=== PATIENT | female | born 2000 | race Caucasian/White ===

== ENCOUNTER → 2021-10-29 14:33 | Outpatient (BNVA) | payer BC, MEDICAID, SELFPAY | PROVIDERS: Family Provider Nurse Practitioner Family; PCP Nurse Practitioner Family; Visit Provider Nurse Practitioner Family | DX: Z20.822 Contact with and (suspected) exposure to COVID-19 (principal) | CPT/HCPCS: 87635 ==

== ENCOUNTER 2021-12-14 08:14 | Emergency (ER) | payer BC, MEDICAID, SELFPAY ==
[2021-12-14 08:22] VITALS: BP 91/59; PULSE 94; RESP 16; TEMP 36.5; O2SAT 100; BMI 28.2
--- NOTE | 2021-12-14 08:31 | W.ED.NECK ---
HPI - Neck Pain/Injury General: Chief Complaint: Neck Pain/Injury Stated Complaint: Neck pain on R side into uperback and shoulder Time Seen by Provider: 12/14/21 08:27 History of Present Illness: 21-year-old female presents emergency room complaining of right-sided neck pain upper back and shoulder pain. Patient states she went to bed she was fine last night she got up this morning she is getting ready to go to bed twisted her neck in such way she felt the sudden discomfort shooting across the trapezius muscle. Does not go down into her fingers. She not previously had any injury to her neck no recent trauma falls. No history of previous whiplash no history of previous neck issues no previous advanced imaging. MD complaint: neck pain Onset (ago): minute(s) Place: home Radiation: right lateral and right shoulder Severity: moderate Quality: aching Duration: intermittent Relieving factors: none Exacerbating factors: none Context: turning/bending Associated symptoms: Denies dysphagia, difficulty walking, dizziness, fevers/chills, headache(s), nausea, swollen glands, tingling or weakness Treatments prior to arrival: none Review of Systems Const: Denies: fever(s), chills, body aches, change in appetite, fatigue or malaise ENMT: Denies: throat pain, ear or mastoid pain, nasal discharge or nasal congestion Card: Denies: chest pain, edema, dyspnea on exertion or orthopnea Resp: Denies: dyspnea, productive cough or non-productive cough GI: Denies: nausea or dysphagia : Denies: flank pain, difficulty voiding, dysuria, urinary frequency or urinary urgency Skin/Breast: Denies: rash or pruritus Neuro: Denies: headache(s), difficulty walking or dizziness PFS ED PFSH: Medical History No significant past medical history Surgical History No pertinent past surgical history Female Reproductive History: Date of last menstrual period: 11/23/21 Physical Exam Const: COMMON NORMALS: no acute distress GENERAL APPEARANCE: cooperative and comfortable ORIENTATION/CONSCIOUSNESS: Yes awake, Yes oriented to person, Yes oriented to place and Yes oriented to time HENMT: COMMON NORMALS: normocephalic, atraumatic and hearing grossly normal bilaterally HEAD & SCALP: normocephalic and atraumatic Neck/C-Spine: COMMON NORMALS: no JVD Resp: COMMON NORMALS: normal respiratory effort, No retractions, No use of accessory muscles and clear to auscultation bilaterally AUSCULTATION: clear to auscultation bilaterally Cardio: COMMON NORMALS: no JVD, regular rate, regular rhythm and No murmurs present (Cardio) RATE: regular rate RHYTHM: regular rhythm GI: COMMON NORMALS: Soft to palpation and No hepatosplenomegaly present AUSCULTATION: Yes normoactive bowel sounds PALPATION: Yes Soft to palpation, No Tenderness to palpation present (GI), No Guarding due to palpation present (GI) and Yes No hepatosplenomegaly present Extremity: COMMON NORMALS: normal to inspection, capillary refill normal, no clubbing, cyanosis or edema, no calf tenderness and no pedal edema Neuro: SENSORIUM/ORIENTATION: Yes oriented to person, Yes oriented to place and Yes oriented to time DEEP TENDON REFLEXES: Right triceps reflex intensity grade: 2+, Rt Biceps (C5, C6): 2+ and Right brachioradialis reflex intensity grade: 2+ Skin: COMMON NORMALS: no rashes or lesions noted GENERAL SKIN EXAM: no rashes or lesions noted Course Vital Signs: Vital signs: Vital Signs Temperature 98.0 F 12/14/21 09:47 Pulse Rate 91 12/14/21 09:47 Respiratory Rate 14 12/14/21 09:47 Blood Pressure 118/86 12/14/21 09:47 Pulse Oximetry 98 12/14/21 09:47 MDM - Neck Pain/Injury Medical Decision Making No trauma. Patient seemed to induce this after just moving her neck shortly after getting up. Seems more musculoskeletal in nature she spends a lot of time massaging her neck twisting and turning trying to find relief. Offered pain medication she declined she even declined the ketorolac she did not want a prescription for any other pain medicines we did give her steroid burst and taper as well as muscle relaxers if not improving follow-up with her primary care for further evaluation possibly including advanced imaging. Discussed with the patient today did not do any imaging as given her history is very unlikely to show anything that would change our treatment of her care today. If she has any change of symptoms follow-up with her primary care and this can be reevaluated. Discharge Plan Discharge Patient Disposition: Home Clinical Impression: Strain of neck muscle Condition: Stable Prescriptions: New diclofenac sodium 75 mg tablet,delayed release (DR/EC) 75 mg PO Q12H PRN (Reason: pain) Qty: 20 0RF prednisone 20 mg tablet 20 mg PO BID 7 Days Qty: 15 0RF Rx Instructions: 1 p.o. 3 times daily 3 days, 1 p.o. twice daily x2 days, 1 p.o. daily x2 days tizanidine 4 mg capsule 4 mg PO Q8H PRN (Reason: muscle spasticity) Qty: 20 0RF No Action buspirone 15 mg tablet 15 mg PO TID 0RF dextroamphetamine-amphetamine [Adderall] 15 mg tablet 15 mg PO BID 0RF Rx Instructions: administer doses at least 4-6 hours apart Discharge Orders: Discharge ED (Routine); Ordered 12/14/21 Ordered By: Maximino Morales Referrals: Tayo Richards FNP [Primary Care Provider] - Discharge Activity: Limit activity as instructed Patient Instructions: Opioid Safety Activity Restrictions/Additional Instructions: Follow-up with your primary care doctor within the next 5 to 7 days if not improving Stand Alone Forms: Work/School Release Coding Level of Care Code ED 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
[2021-12-14 08:59] VITALS: BP 130/88; PULSE 108; RESP 14; TEMP 36.8; O2SAT 99
[2021-12-14] MEDS: dexamethasone 10 mg/mL INJ IM (09:13)
[2021-12-14] MEDS: orphenadrine 30 mg/mL Inj 2 mL 60 MG IM (09:13)
[2021-12-14] MEDS: acetaminophen 500 mg Tablet 1000 MG PO (09:25)
[2021-12-14 09:47] VITALS: BP 118/86; PULSE 91; RESP 14; TEMP 36.7; O2SAT 98
== END 2021-12-14 09:45 | disposition home or self-care (01) ==
PROVIDERS: Emergency Provider Family Medicine; PCP Nurse Practitioner Family
DX: S16.1XXA Strain of muscle, fascia and tendon at neck level, initial encounter (principal); X50.1XXA Overexertion from prolonged static or awkward postures, initial encounter
CPT/HCPCS: 96372; 99283; J1100; J2360

== ENCOUNTER 2022-02-08 21:00 | Emergency (ER) | payer BC, MEDICAID, SELFPAY ==
[2022-02-08 21:07] VITALS: BP 122/83; PULSE 107; RESP 20; TEMP 37.4; O2SAT 99; BMI 30.7
--- NOTE | 2022-02-08 21:07 | XRR_ITS ---
PROCEDURE INFORMATION: Exam: XR Chest Exam date and time: 02/08/2022 9:19 PM Age: 21 years old Clinical indication: Shortness of breath; Additional info: Dyspnea TECHNIQUE: Imaging protocol: XR of the chest. Views: 2 views. COMPARISON: CR Chest 2 views* [id number] 08/13/2017 7:32 PM FINDINGS: Lungs: Unremarkable. No consolidation. Pleural spaces: Unremarkable. No pleural effusion. No pneumothorax. Heart/Mediastinum: Unremarkable. No cardiomegaly. Bones/joints: Unremarkable. XR/XR chest 2V* [id number] IMPRESSION: No acute findings.
--- NOTE | 2022-02-08 21:15 | W.ED.SOB ---
HPI - SOB/Dyspnea General: Chief Complaint: Shortness of Breath/Dyspnea Stated Complaint: SOB Time Seen by Provider: 02/08/22 21:07 History of Present Illness: HPI Narrative: 21-year-old female comes in today with reports of cough and chest congestion starting about 3 days ago. Patient was seen yesterday and started on some antibiotics and given a dose of steroid. Patient reports feeling somewhat better today until this evening when she started coughing and feeling worse. Patient appears mildly unwell but not toxic. Patient appears in no pain. Associated symptoms: Deny chest pain Review of Systems General: Reports: 10 or more systems reviewed and unremarkable except in HPI and below ENMT: Reports: throat pain and nasal congestion Card: Denies: chest pain Resp: Reports: dyspnea and non-productive cough Skin/Breast: Denies: rash PFSH ED PFSH: Medical History No significant past medical history Surgical History No pertinent past surgical history Social History Smoking and tobacco status: current every day smoker Female Reproductive History: Date of last menstrual period: 11/23/21 Physical Exam Const: COMMON NORMALS: alert HENMT: NOSE: Nasal discharge present clear MOUTH: Normal oral and palatal mucosa present THROAT: posterior oropharynx normal Resp: COMMON NORMALS: normal respiratory effort AUSCULTATION: diminished lung sounds Cardio: COMMON NORMALS: regular rhythm RATE: tachycardic RHYTHM: regular rhythm Extremity: COMMON NORMALS: normal to inspection Neuro: SENSORIUM/ORIENTATION: Yes alert Skin: COMMON NORMALS: no rashes or lesions noted GENERAL SKIN EXAM: no rashes or lesions noted Course Vital Signs: Vital signs: Vital Signs Temperature 99.3 F 02/08/22 21:07 Pulse Rate 107 H 02/08/22 21:07 Respiratory Rate 20 H 02/08/22 21:07 Blood Pressure 122/83 02/08/22 21:07 Pulse Oximetry 99 02/08/22 21:07 MDM - SOB/Dyspnea Medical Decision Making 21-year-old female comes in today with complaints of general body aches, cough, and chest congestion. Patient was started on amoxicillin yesterday and was given a dose of steroid. Patient reported some improvement in symptoms this morning but symptoms worsened tonight. On exam patient appears mildly unwell but not toxic. Lungs are clear to auscultation. Skin is warm and dry. Vital signs are normal except for some mild elevation in pulse and respirations. Differential diagnosis includes pneumonia, viral syndrome, COVID-19, influenza. Chest x-ray did not notice any signs of pneumonia. COVID and influenza test were taken for PCR evaluation. Patient will contact us back in about 3 to 4 hours for results. Encourage fluids rest Tylenol and ibuprofen and treat for acute viral syndrome. Discharge Plan Discharge Patient Disposition: Home Clinical Impression: Acute viral syndrome Condition: Stable Prescriptions: No Action buspirone 15 mg tablet 15 mg PO TID 0RF dextroamphetamine-amphetamine [Adderall] 15 mg tablet 15 mg PO BID 0RF Rx Instructions: administer doses at least 4-6 hours apart doxepin 25 mg capsule 25 mg PO DAILY 0RF amoxicillin 875 mg tablet 875 mg PO BID 7 Days Qty: 14 0RF Discharge Orders: Discharge ED (Routine); Ordered 02/08/22 Ordered By: Yifan Manzo Referrals: Tayo Richards FNP [Primary Care Provider] - Discharge Diet: Usual diet Discharge Activity: Increase activity as tolerated Patient Instructions: Viral Syndrome (ED) Activity Restrictions/Additional Instructions: Drink plenty of fluids. Get plenty of rest and plenty of sleep. Use acetaminophen and ibuprofen for pain and discomfort. Monitor for worsening shortness of breath, persistent fever lasting longer than 7 days, symptoms that improved and then worsened again, or new concerns and return to the ER if needed. Follow-up with [facility] in 3 hours for results of COVID and flu test. Follow-up with primary care as needed. 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
[2022-02-08 21:54] VITALS: BP 115/78; PULSE 104; RESP 18; TEMP 37.7; O2SAT 99
[2022-02-08 23:21] LABS: Adenovirus Not Detected (NOT DETECT); Chlamydia Pneumoniae Not Detected (NOT DETECT); Coronavirus 229E,HKU1,NL63,OC4 Not Detected (NOT DETECT); Human Metapneumovirus Detected (NOT DETECT); Human Rhinovirus/Enterovirus Not Detected (NOT DETECT); Influenza A Detected (NOT DETECT); Influenza A H1 Not Detected (NOT DETECT); Influenza A H1-2009 Not Detected (NOT DETECT); Influenza A H3 Detected (NOT DETECT); Influenza B Not Detected (NOT DETECT); Mycoplasma Pneumoniae Not Detected (NOT DETECT); Parainfluenza Virus Type 1 Not Detected (NOT DETECT); Parainfluenza Virus Type 2 Not Detected (NOT DETECT); Parainfluenza Virus Type 3 Not Detected (NOT DETECT); Parainfluenza Virus Type 4 Not Detected (NOT DETECT); Respiratory Syncytial Virus A Not Detected (NOT DETECT); Respiratory Syncytial Virus B Not Detected (NOT DETECT); SARS-COV-2 Not Detected (NOT DETECT)
== END 2022-02-08 21:55 | disposition home or self-care (01) ==
PROVIDERS: Emergency Provider Nurse Practitioner Family; PCP Nurse Practitioner Family
DX: B34.9 Viral infection, unspecified (principal); F17.200 Nicotine dependence, unspecified, uncomplicated
CPT/HCPCS: 71046; 87486; 87581; 87633; 99282

== ENCOUNTER → 2023-03-24 09:13 | Outpatient (BNVA) | payer BC, MEDICAID, SELFPAY | PROVIDERS: PCP Nurse Practitioner Family; Visit Provider Nurse Practitioner Family | DX: M25.572 Pain in left ankle and joints of left foot (principal) | CPT/HCPCS: 73610 ==

== ENCOUNTER 2024-09-05 13:32 | Emergency (ER) | payer BC, MEDICAID, SELFPAY ==
[2024-09-05 13:37] VITALS: BP 106/80; PULSE 83; RESP 18; TEMP 36.5; O2SAT 99; BMI 28.2
[2024-09-05 14:28] LABS: Basophils % 0.3 %; Eosinophils % 0.3 %; Hematocrit 36.8 % (36-47); Lymphocytes # 2.2 10^3/uL (0.8-4.8); Mean Corpuscular HGB Conc 33.4 g/dL (30-55); Mean Corpuscular Hemoglobin 29.7 pg (27-33); Mean Corpuscular Volume 88.9 fl (85-98); Mean Platelet Volume 8.8 fL (7.4-10.4); Monocytes # 0.7 10^3/uL (0.2-0.9); Monocytes % 6.1 %; Neutrophils # 8.55 10^3/uL (1.8-7.7); Nucleated Red Blood Cells % 0 %; Platelet Count 404 10^3/cmm (157-399); Red Blood Count 4.14 10^6/uL (3.85-5.65); White Blood Count 11.55 10^3/uL (3.29-11.43)
[2024-09-05 14:56] LABS: Alanine Aminotransferase 7 U/L (0-33); Alkaline Phosphatase 73 U/L (35-105); Aspartate Amino Transferase 10 U/L (0-32); Blood Urea Nitrogen 7 mg/dL (6-20); Calcium 8.8 mg/dL (8.5-10.5); Carbon Dioxide 21 mmol/L (22-29); Chloride 101 mmol/L (98-107); Creatinine Clr Calc Pharmacy 230.5172; Globulin 3.5 g/dL (1.3-4.6); Glomerular Filtration Rate 196.1 mL/min (90-130); Glucose 84 mg/dL (65-115); Osmolality Calculated 275 mOsm/kg (285-295); Sodium 134 mmol/L (136-145); Total Bilirubin 0.4 mg/dL (0.15-1.2); Total Protein 7.5 g/dL (6.6-8.7)
[2024-09-05 14:57] LABS: Bilirubin Urine Negative (Negative); Blood Urine Negative (Negative); Glucose Urine UA Negative (Normal); Ketones Urine 1+ (Negative); Leukocyte Esterase Urine Negative (Negative); Nitrate Urine Negative (Negative); Protein Urine Negative (Negative); Specific Gravity, Urine 1.019 (1.005-1.030); Urine Appearance Cloudy (CLEAR); Urine Color Yellow (Yellow); pH Urine 7.5 (5-7)
[2024-09-05 15:00] LABS: Add Urine Microscopic? YES; Bacteria Urine 2+ /hpf; RBC Urine 0-2 /hpf (0-2); Squamous Epithelial Cell Urine 21-50 /hpf (0-5)
[2024-09-05 15:12] LABS: UA Slide Review UA Slide Review Perf
[2024-09-05 15:16] LABS: Add Urine Culture? Yes
--- NOTE | 2024-09-05 16:11 | USR_ITS ---
PROCEDURE INFORMATION: Exam: US , Limited Exam date and time: 09/05/2024 3:31 PM Age: 23 years old Clinical indication: Lmp or gestational age (in weeks): 16 weeks; Antepartum complications; Other: Cramping; ; Additional info: 15 wks, cramping/bleeding LABS AND CLINICAL REPORTS: Gestational age (Established): 15 w 4 d Estimated due date (Established): 02/23/2025 TECHNIQUE: Imaging protocol: Real-time ultrasound of the maternal uterus with image documentation. Exam focused on the clinical indication. COMPARISON: No relevant prior studies available. FINDINGS: Gestation: Intrauterine gestation. heart rate: 152 bpm presentation and position: Transverse Placenta: Posterior placenta . BIOMETRY: Gestational age (AUA): Estimated gestational age 16 weeks 0 days Estimated due date (AUA): Estimated date of delivery 02/20/2025 Estimated weight: 139.45 g. EFW by AC, BPD, FL, HC, Hadlock 1985. 65.2% percentile Biparietal diameter (BPD): 3.33 cm. EGA (BPD) is 16 w 2 d. 80.3 % percentile Head circumference (HC): 11.79 cm. EGA (HC) is 15 w 6 d. 47.7 % percentile Abdominal circumference (AC): 9.88 cm. EGA (AC) is 16 w 0 d. 65.4 % percentile Femur length (FL): 1.99 cm. EGA (FL) is 15 w 6 d. 59.9 % percentile HC/AC: 1.19. (Normal range: 1.06 - 1.34) FL/HC: 16.88. (Normal range: 13.3 - 16.5) FL/BPD: 59.76 FL/AC: 20.14 US/US OB limited [id number] IMPRESSION: Single live intrauterine with estimated gestational age 16 weeks 0 days and estimated date of delivery 02/20/2025
--- NOTE | 2024-09-05 17:03 | W.ED.PREGNAN ---
HPI - General: Chief complaint: OB/Uterine Contractions Stated complaint: 15 wks prg - cramping and bleeding Time Seen by Provider: 09/05/24 16:46 Source: patient Mode of arrival: ambulatory Limitations: no limitations History of Present Illness: Patient is a 23-year-old female at approximately 15 weeks here for cramping and a small amount of bleeding she had this morning. Patient states she has had cramping of the past several weeks. She states she had an OB ultrasound around 12 weeks showing a small subchorionic hemorrhage. Said this morning she had a small gush of bright red blood enough to soak a pad but states bleeding immediately subsided after that and has not continued any further. Patient denies fevers. She is not having any vaginal discharge or vaginal odor. She states she recently moved from [facility] and has continued OB care scheduled in early September. Complaint: other (cramping/bleeding) Onset (ago): week(s) (cramping x 5 weeks) Pain Consistency: intermittent Location: pelvis Severity: mild Quality: Cramping Relieving factors: none Exacerbating factors: none Vaginal discharge: none Vaginal bleeding: light Date of Last Menstrual Period: 05/13/24 Patient : Yes OB History - Current : no complications care: followed by OB Associated symptoms: Deny dysuria, headache(s), malaise, nausea, vaginal discharge or vomiting Related Data Home Medications Medication Instructions Recorded Confirmed buspirone 15 mg tablet 15 mg PO TID 10/29/21 03/24/23 dextroamphetamine-amphetamine 15 15 mg PO BID 10/29/21 03/24/23 mg tablet (Adderall) Previous Rx's Medication Instructions Recorded amoxicillin 875 mg-potassium 1 tab PO BID #14 tabs 09/05/24 clavulanate 125 mg tablet Allergies Allergy/AdvReac Type Severity Reaction Status Date / Time metoclopramide [From Reglan] Allergy Unknown Verified 09/05/24 13:40 morphine Allergy rash Verified 03/24/23 09:07 Review of Systems Const: Denies: fever(s), chills, body aches, fatigue or malaise Card: Denies: chest pain Resp: Denies: dyspnea GI: Denies: nausea, vomiting, diarrhea or change in bowel habits : Reports: vaginal bleeding and pelvic pain (intermittent cramping); Denies: flank pain, difficulty voiding, dysuria, urinary frequency, urinary urgency, urinary hesitancy, hematuria, genital lesions, genital pruritis, vaginal odor or vaginal discharge Musc: Denies: neck pain, back pain, extremity pain, extremity swelling, joint pain or joint swelling Skin/Breast: Denies: rash Neuro: Denies: headache(s), numbness in extremities, weakness in extremities, sensory changes or dizziness PFSH ED PFSH: Medical History Encounter for incision and drainage procedure Abscess of lip No significant past medical history Surgical History No pertinent past surgical history Social History Smoking and tobacco/nicotine status: current every day tobacco/nicotine user Female Reproductive History: Date of last menstrual period: 05/13/24 Physical Exam Const: COMMON NORMALS: no acute distress, average body habitus, patient oriented x3, no limitations, healthy appearing, alert and well nourished GENERAL APPEARANCE: cooperative ORIENTATION/CONSCIOUSNESS: Yes awake, Yes oriented to person, Yes oriented to place and Yes oriented to time Resp: COMMON NORMALS: normal respiratory effort and clear to auscultation bilaterally AUSCULTATION: clear to auscultation bilaterally Cardio: COMMON NORMALS: regular rate and regular rhythm RATE: regular rate RHYTHM: regular rhythm GI: COMMON NORMALS: Normal to inspection, nondistended, normoactive bowel sounds present, Soft to palpation, non-tender, No hepatosplenomegaly present and no masses PALPATION: Yes Soft to palpation and Yes No hepatosplenomegaly present : COMMON NORMALS: Yes no CVA tenderness BLADDER/KIDNEY EXAM: Yes no CVA tenderness OB/EXTERNAL & SPECULUM: Deferred OB/external & speculum exam Back/Pelvis: COMMON NORMALS: no CVA tenderness and thoracic and lumbar spine normal to inspection Neuro: COMMON NORMALS: patient oriented x3 SENSORIUM/ORIENTATION: Yes alert, Yes oriented to person, Yes oriented to place and Yes oriented to time Course Vital Signs: Vital signs: Vital Signs Temperature 97.7 F 09/05/24 13:37 Pulse Rate 83 09/05/24 13:37 Respiratory Rate 17 09/05/24 17:24 Blood Pressure 106/80 09/05/24 13:37 Pulse Oximetry 99 09/05/24 13:37 Oxygen Delivery Me thod Room Air 09/05/24 13:37 MDM - OB/Uterine Contractions Medical Decision Making Patient clinically appears in no acute distress. Her vital signs are stable. Blood work is unremarkable. Ultrasound showing a live intrauterine estimated at 16w0d. UA is cloudy with 11-20 WBCs and 2+ bacteria. It is contaminated. Will go ahead and place on prophylactic antibiotics. Recommend follow-up with her OB provider in a few weeks as scheduled. Return to ED precautions given. Medical Records I reviewed the patient's medical records. Lab Data I reviewed the patient's lab results. 09/05/24 14:17 09/05/24 14:17 Radiology Impressions Obstetrics Ultrasound 09/05/24 16:11 IMPRESSION: Single live intrauterine with estimated gestational age 16 weeks 0 days and estimated date of delivery 02/20/2025 Laboratory Results WBC 11.55 10^3/uL (3.29-11.43) H 09/05/24 14:17 RBC 4.14 10^6/uL (3.85-5.65) 09/05/24 14:17 Hgb 12.30 g/dL (11.27-16.99) 09/05/24 14:17 Hct 36.8 % (36-47) 09/05/24 14:17 MCV 88.9 fl (85-98) 09/05/24 14:17 MCH 29.7 pg (27-33) 09/05/24 14:17 MCHC 33.4 g/dL (30-55) 09/05/24 14:17 RDW 13.0 % (12.1-15.1) 09/05/24 14:17 Plt Count 404 10^3/cmm (157-399) H 09/05/24 14:17 MPV 8.8 fL (7.4-10.4) 09/05/24 14:17 Neut % (Auto) 74.0 % 09/05/24 14:17 Lymph % (Auto) 19.0 % 09/05/24 14:17 [place] % (Auto) 6.1 % 09/05/24 14:17 Eos % (Auto) 0.3 % 09/05/24 14:17 Baso % (Auto) 0.3 % 09/05/24 14:17 Neut # (Auto) 8.55 10^3/uL (1.8-7.7) H 09/05/24 14:17 Lymph # (Auto) 2.2 10^3/uL (0.8-4.8) 09/05/24 14:17 [place] # (Auto) 0.7 10^3/uL (0.2-0.9) 09/05/24 14:17 Eos # (Auto) 0.0 10^3/uL (0.0-0.8) 09/05/24 14:17 Baso # (Auto) 0.0 10^3/uL (0.0-0.1) 09/05/24 14:17 Nucleated RBC % (auto) 0 % 09/05/24 14:17 Nucleated RBCs # 0.0 /100WBC 09/05/24 14:17 Sodium 134 mmol/L (136-145) L 09/05/24 14:17 Potassium 4.0 mmol/L (3.5-5.1) 09/05/24 14:17 Chloride 101 mmol/L (98-107) 09/05/24 14:17 Carbon Dioxide 21 mmol/L (22-29) L 09/05/24 14:17 Anion Gap 16.0 (5-19) 09/05/24 14:17 BUN 7 mg/dL (6-20) 09/05/24 14:17 Creatinine 0.4 mg/dL (0.5-0.9) L 09/05/24 14:17 GFR Calculation 196.1 mL/min (90-130) H 09/05/24 14:17 Glucose 84 mg/dL (65-115) 09/05/24 14:17 Calculated Osmolality 275 mOsm/kg (285-295) L 09/05/24 14:17 Calcium 8.8 mg/dL (8.5-10.5) 09/05/24 14:17 Total Bilirubin 0.4 mg/dL (0.15-1.2) 09/05/24 14:17 AST 10 U/L (0-32) 09/05/24 14:17 ALT 7 U/L (0-33) 09/05/24 14:17 Alkaline Phosphatase 73 U/L (35-105) 09/05/24 14:17 Total Protein 7.5 g/dL (6.6-8.7) 09/05/24 14: Albumin 4.0 g/dL (3.5-5.2) 09/05/24 14: Globulin 3.5 g/dL (1.3-4.6) 09/05/24 14:17 Ser , Semi-Qnt 45693.00 mIU/mL 09/05/24 14: Urine Color Yellow (Yellow) 09/05/24 14: Urine Appearance Cloudy (CLEAR) A 09/05/24 14: Urine pH 7.5 (5-7) 09/05/24 14: Ur Specific [place] 1.019 (1.005-1.030) 09/05/24 14: Urine Protein Negative (Negative) 09/05/24 14: Urine Glucose (UA) Negative (Normal) 09/05/24 14: Urine Ketones 1+ (Negative) H 09/05/24 14: Urine Blood Negative (Negative) 09/05/24 14: Urine Nitrate Negative (Negative) 09/05/24 14: Urine Bilirubin Negative (Negative) 09/05/24 14: Urine Urobilinogen 1.0 mg/dL (Negative) 09/05/24 14: Ur Leukocyte Esterase Negative (Negative) 09/05/24 14: Urine RBC 0-2 /hpf (0-2) 09/05/24 14: Urine WBC 11-20 /hpf (0-5) H 09/05/24 14: Ur Squamous Epith Cells 21-50 /hpf (0-5) 09/05/24 14: Amorphous Sediment Not Reportable 09/05/24 14: Urine Bacteria 2+ /hpf (NONE) H 09/05/24 14: Hyaline Casts 3.30 /lpf 09/05/24 14: Urine Yeast Trace /hpf 09/05/24 14: Blood Type A Positive 09/05/24 14:17 Rho(D) Type Rh positive 09/05/24 14:17 Antibody Screen Negative 09/05/24 14:17 All radiology interpretation(s) finalized by discharge (per Mark US tech-normal OB examination) Discharge Plan Discharge Patient Disposition: Home Clinical Impression: Second trimester bleeding, Urinary tract infection during Condition: Stable Prescriptions: New amoxicillin-pot clavulanate 875-125 mg tablet 1 tab PO BID Qty: 14 0RF No Action buspirone 15 mg tablet 15 mg PO TID dextroamphetamine-amphetamine [Adderall] 15 mg tablet 15 mg PO BID Rx Instructions: administer doses at least 4-6 hours apart Discharge Orders: Discharge ED (Routine); Ordered 09/05/24 Ordered By: Dominique Chauhan Patient Instructions: Urinary Tract Infection in (ED) Activity Restrictions/Additional Instructions: Please follow-up with your OB provider as scheduled. You may return to the emergency department for worsening pain, bleeding, fevers, generally feeling worse or unwell, or any other concerns you may have. Coding Level of Care Code ED Wire Transfer Clerk for Negin Cisneros
[2024-09-05] MEDS: amoxicillin-clav 875-125 mg Tablet 1 TAB PO (17:22)
[2024-09-05 17:24] VITALS: RESP 17
== END 2024-09-05 17:25 | disposition home or self-care (01) ==
PROVIDERS: Emergency Medicine; Emergency Provider Physician Assistant
DX: O46.8X2 Other antepartum hemorrhage, second trimester (principal); O23.42 Unspecified infection of urinary tract in pregnancy, second trimester; N39.0 Urinary tract infection, site not specified; Z72.0 Tobacco use; Z3A.16 16 weeks gestation of pregnancy
CPT/HCPCS: 36415; 76815; 80053; 81001; 84702; 85025; 86850; 86900; 87086; 99284

== ENCOUNTER 2024-11-12 09:37 | Outpatient (CLI) | payer BC, MEDICAID, SELFPAY ==
[2024-11-12] VITALS (9 sets, daily range): BP systolic 100–136; BP diastolic 56–74; PULSE 77–96; RESP 17; O2SAT 98; BMI 32.4
[2024-11-12 10:35] LABS: Nitrazine Paper, PH Negative
[2024-11-12 11:11] LABS: Bilirubin Urine Negative (Negative); Blood Urine Negative (Negative); Glucose Urine UA Trace (Normal); Ketones Urine Trace (Negative); Leukocyte Esterase Urine Negative (Negative); Nitrate Urine Negative (Negative); Protein Urine 1+ (Negative); Specific Gravity, Urine 1.019 (1.005-1.030); Urine Appearance Clear (CLEAR); Urine Color Yellow (Yellow); pH Urine 7.5 (5-7)
[2024-11-12 11:16] LABS: Bacteria Urine 2+ /hpf; Hyaline Casts Urine 12.81 /lpf; RBC Urine 0-2 /hpf (0-2); WBC Urine 21-50 /hpf (0-5)
[2024-11-12 11:42] LABS: UA Slide Review UA Slide Review Perf
--- NOTE | 2024-11-12 11:54 | US_ITS ---
WS: [id number] ULTRASOUND OB FOCUSED HISTORY: cervical length COMPARISON: 09/05/2024 Transvaginal imaging is performed to evaluate the cervix. Cervical length is normal at 3.5 cm. No cer vical insufficiency. No images of the heart rate performed. US/US OB lmt with transvaginal IMPRESSION: Normal cervical length. No cervical insufficiency.
== END 2024-11-12 13:24 | disposition home or self-care (01) ==
LOC: OPOB 09:41 → OBGYN 09:42
PROVIDERS: Visit Provider Family Medicine
DX: O26.899 Other specified pregnancy related conditions, unspecified trimester (principal); Z3A.00 Weeks of gestation of pregnancy not specified; N89.8 Other specified noninflammatory disorders of vagina; R10.9 Unspecified abdominal pain
CPT/HCPCS: 76815; 76817; 81001; 83986; 99211

== ENCOUNTER → 2024-11-19 16:38 | Outpatient (BNVA) | payer BC, MEDICAID, SELFPAY | PROVIDERS: Visit Provider Nurse Practitioner | DX: R10.9 Unspecified abdominal pain (principal) | CPT/HCPCS: 81000 ==

== ENCOUNTER 2025-06-08 10:07 | Emergency (ER) | payer BC, MEDICAID, SELFPAY ==
--- OUTSIDE RECORDS SUMMARY | 2014-09-09 06:29 | XMS_ITS | Continuity of Care Document ---
Author Organization [facility]. Address [address] [place] [address] Phone Care Team Providers Care National Sales Executive Name Role Phone Unavailable Unavailable Unavailable Advance Directives Directive Yes / No Effective Date File Name No Information Encounters Encounter Description Practice Location Reason(s) For Visit Diagnoses Date Provider Providers Copied on Encounter [facility], [place], [address], [place], [address], [place] tel:[phone] [place] [facility] No Information No Information Family History Family Member Type Diagnosis Age At Onset Problem (finding) No family hist ory of Premature CAD Problem (finding) No family history of Guerrero dden Problem (finding) No family history of Ar rhythmia Problem (finding) No family hist ory of Cardiomyopathy - dilated Problem (finding) No family hist ory of Cardiomyopathy - hypertrophic Problem (finding) No family hist ory of Congenital Heart Disease Problem (finding) No family hist ory of Diabetes Mellitus Maternal Grandmother Problem (finding) Hypertension Payers Payer name Insurance type Covered green party ID Authoriza tion(s) [place] [employer] [id number] Social History Type Description Quantity Date Captured Comments Sex Female Smoking Status No Information Chief Complaint And Reason For Visit No Information History Of Present Illness Encounter Date Complaint History Of Prese nt Illness No Information Instructions Date Instruction Additional Infor mation No Information Assessments Type Assessment Date No Information
--- OUTSIDE RECORDS SUMMARY | 2024-06-17 21:32 | XMS_ITS | Encounter Summary ---
Author Organization [facility] Address [address] [place] [address] Care Team Providers Care Warehouse Selector Name Role Phone Gracia Ralph DO Primary Care Provider [phone] Reason for Visit * Auth/Cert Specialty Diagnoses / Procedures Referred By Eliot t Referred To Contact Perioperative Diagnoses Endometriosis Procedures NV LAPS FULG/EXC OVARY VISCERA/PERITONEAL SURFACE LAPAROSCOPY DIAGNOSTIC/OPERATIVE Reilly Walker MD [address] [place] [phone] Phone: tel: fax: [facility] Operating Room [address] [place] [phone] Phone: tel: fax: Referral ID Status Reason Start Date Expiration Date Visits Re quested Visits Authorized [id number] 1 1 Encounter Details Date Type Department Care Team (Late st Contact Info) Description 06/17/2024 9:32 PM CDT Hospital Encounter [facility] Operating Room [address] [place] [phone] Reilly Walker MD 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 No CHG was given to the pt. No lotion, deodorant, or makeup should be worn. Do not shave near surgery site for greater than 24 hours. Nothing to eat or drink after midnight. Only enough water for pills and to brush teeth. Patient to leave valuables and jewelry at home, no contact lens, dentures, glasses or hearing aids can be worn into operating room. [place] AM Medications to be taken the DOS with sip of water. Imitrex prn Hold the following medications on the DOS: vitamins/supplements Patient will need a cdl a driver 18 years of age to sign discharge instructions and to transport home. Patient's tentative arrival/surgery time will be 1000/1106 Patient will get a phone call the working day before surgery after 3pm to verify exact arrival time. Preop testing required for surgery [facility] on 06-10-24 Patient to contact surgeon's office and possibly seek Flu and Covid testing, if symptoms develop within 10 days of procedure. Pt verbalized understanding instructions. documented in this encounter H&P Notes * Reilly Walker MD - 06/16/2024 6:50 PM CDT Pre-operative H&P Subjective: Hilary Galarza is a 23 y.o. female scheduled for a Laparoscopic ablation of endometriosis which she has had done in thr past. History of Present Illness: Patient has a history of a prior Endometriosis diagnosis with two laparoscopic ablations 09/05/18: [place] 09/11/19: [place] She reports a constant pelvic pressure and severe dysmenorrhea on her cycles. Since her last laparoscopy she has progressively developed increasing bilateral and central pelvic pains Patient Active Problem List Diagnosis Date Noted Migraine without aura and without status migrainosus, not intractable 02/16/2022 Attention deficit hyperactivity disorder (ADHD), combined type 04/02/2021 RAD (reactive airway disease) Premature baby Endometriosis determined by laparoscopy 08/30/2018 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 Generalized anxiety disorder 11/15/2014 Asthma 10/24/2014 MDD (major depressive disorder) 01/15/2014 Gingival hyperplasia 11/22/2013 Chalazion 02/22/2012 Constipation 11/18/2010 Past Medical History: Diagnosis Date Anxiety Asthma childhood Bipolar 2 disorder, major depressive episode Borderline personality disorder 09/05/2023 Chronic bilateral thoracic back pain 02/16/2022 Chronic neck pain 02/16/2022 Difficult intravenous access in the past needed U/S, lots of valves Endometriosis GI problem Headache IBS (irritable bowel syndrome) Mild intermittent asthma without complication 10/24/2014 Motion sickness Post-operative nausea and vomiting requests scopalamine patch bc it helps a lot Premature baby 33 weeks, no problems at PTSD (post-traumatic stress disorder) Seizure disorder last episode 2016- stress induced Past Surgical History: Procedure Laterality Date CHG ANES EXCIS CHALAZION,GEN ANESTHESIA 03.16.12 I&C RUL HX APPENDECTOMY 2007 HX BREAST REDUCTION 2022 HX CHOLECYSTECTOMY 2010 HX DILATION AND CURETTAGE HX PELVIC LAPAROSCOPY HX TONSILLECTOMY NV ARTHROSCOPY KNEE DIAGNOSTIC W/WO SYNOVIAL BX SPX 12/25/2013 KNEE ARTHROSCOPY performed by Tres Chacon MD at [facility] OR NV ARTHROSCOPY KNEE SYNOVECTOMY LIMITED SPX Left 12/25/2013 KNEE SYNOVECTOMY ARTHROSCOPIC performed by Tres Chacon MD at [facility] OR NV ARTHRS KNE SURG W/MENISCECTOMY MED/LAT W/SHVG 12/25/2013 KNEE LATERAL MENISCECTOMY ARTHROSCOPIC performed by Tres Chacon MD at [facility] OR NV COLONOSCOPY FLX DX W/COLLJ SPEC WHEN PFRMD N/A 01/26/2018 COLONOSCOPY performed by Alvin Vincent MD at [facility] ENDOSCOPY ELIZABETH NV EXC CHALAZION ANES REQ HOSPIZATION SINGLE/MULT 03/16/2012 CHALAZION EXCISION performed by Yanique Guerra MD at [facility] SUR[facility]ERY [facility] E ATKA No medications prior to admission. Allergies Allergen Reactions Morphine Rash Social History Tobacco Use Smoking status: Every Day Passive exposure: Yes Smokeless tobacco: Never Substance Use Topics Alcohol use: No Family History Problem Relation Name Age of Onset Healthy Father Healthy Mother Multiple Sclerosis Mother Endometriosis Mother Angioedema Sister Breast Cancer Other great mat. 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 Musculoskeletal: no new pains, No excessive edema, no erythema Neurological: no headache, no neuropathic pain Psychiatric: no new or change in anxiety, no new or change in depression CBC: Lab Results Component Value Date/Time WBC 11.9 (H) 06/10/2024 04:20 PM HGB 12.3 06/10/2024 04:20 PM HCT 38.2 06/10/2024 04:20 PM PLT 327 06/10/2024 04:20 PM MCV 91.6 06/10/2024 04:20 PM BMP: Lab Results Component Value Date/Time NA 138 04/03/2024 09:29 AM K 3.6 04/03/2024 09:29 AM CL 104 04/03/2024 09:29 AM CO2 21 (L) 04/03/2024 09:29 AM CA 9.1 04/03/2024 09:29 AM BUN 7 04/03/2024 09:29 AM CREAT 0.59 04/03/2024 09:29 AM GLUCOSE 87 04/03/2024 09:29 AM ANIONGAP 13 04/03/2024 09:29 AM Objective: BP 118/76 Ht 5' 6 (1.676 m) Wt 84 kg (185 lb 3.2 oz) LMP 05/14/2024 (Exact Date) BMI 29.89kg/m?? General: Head: Well developed, well nourished female, no acute distress. Alert and oriented times three. Normal mood and affect Normocephalic, atraumatic Eyes: EOMI, Non icteric sclera, Skin: Normal on visualized areas, no lesions or rashes Neck: Supple, Full ROM, normal to inspection Back: no CVA tenderness, Full ROM Lungs: clear bilaterally, normal respiratory effort, no audible wheeze Heart: regular rate and rhythm, no abnormal murmurs Abdomen: Soft, non-tender. No rebound. No distension. No masses, no hernia. Extremities: moves all extremities equally, no edema, redness or tenderness in the calves or thighs, normal strength, normal tone Neurologic: Alert and oriented times three, normal mood Vulva: Normal without lesions : Normal urethral meatus Vagina: Normal mucosa, no abnormal discharge Cervix: no lesions, nontender Uterus: Normal Size, Nontender Left Adnexa: Normal, non-tender Right Adnexa: Normal, non-tender Assessment: Hx of endometriosis with worsening pain requesting a repeat laparoscopy to ablate endometriosis Bilateral functional Cysts with largest on the Right measuring 2.6 cm Severe Dysmenorrhea Chronic Pelvic Pain Menorrhagia with regular cycles Severe Migraine headaches, Twice weekly followed with PCP Asthma Generalized anxiety disorder Desires , tried 18 mos thus far with current partner Plan: Operative Laparoscopy for the ablation of endometriosis documented in this encounter Plan of Treatment Upcoming Encounters Date Type Department Care Team (Late st Contact Info) Description 06/18/2025 1:40 PM CDT Office Visit [facility] Todd Bautista Kush [address] [place] [phone] Gene Krishnamurthy DO [address] [place] [address] Scheduled Orders Name Type Priority Associated Diagnoses Orde r Schedule HCG QUANTITATIVE, BLOOD Lab Stat ONE TIME for 1 O ccurrences starting 06/17/2024 until 06/17/2024 documented as of this encounter Procedures Procedure Name Priority Date/Time Associated Diagnosis Comments CASE CANCELLED 06/17/2024 9:32 PM CDT Endometriosis Case Notes HEALTHY BLUE documented in this encounter Visit Diagnoses Diagnosis Pre-op testing- Primary Preoperative examination, unspecified documented in this encounter Administered Medications Active Administered Medications - up to 3 most recent administrations Medication Order MAR Action Action Date Dose Rate Site acetaminophen (TYLENOL) tablet 975 mg 975 mg, Oral, PRE-PROCEDURE ONCE, 1 dose, Starting on Mon06/17/24 at 0832, Until Discontinued, Routine, Pre-op pregabalin (LYRICA) capsule 75 mg 75 mg, Oral, PRE-PROCEDURE ONCE, 1 dose, Starting on Mon06/17/24 at 0832, Until Discontinued, Routine, Pre-op documented in this encounter Additional Health Concerns Infection Onset Date Last Indicated Resolved Time R/O GI Pathogen 07/13/2024 07/12/2024 07/13/2024 4 :06 PM CDT R/O C. 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
--- OUTSIDE RECORDS SUMMARY | 2025-06-08 10:12 | XMS_ITS | Encounter Summary ---
Author Organization [facility] Address [address] [place] [address] Care Team Providers Care Cinder Man Name Role Phone Gracia Ralph Primary Care Provider [phone] Encounter Details Date Type Department Care Team (Late st Contact Info) Description 06/17/2024 Lab Requisition [facility] [address] [place] [address] Reilly Walker MD 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 Gender Identity Female 05/16/2024 11:40 AM CDT Sexual Orientation Not on file documented as of this encounter Plan of Treatment Upcoming Encounters Date Type Department Care Team (Late st Contact Info) Description 06/18/2025 1:40 PM CDT Office Visit [facility] Todd Bautista [place] [address] [place] [address] Gene Krishnamurthy DO [address] [place] [address] documented as of this encounter Procedures Procedure Name Priority Date/Time Associated Diagnosis Comments HCG QUANTITATIVE, BLOOD Stat 06/17/2024 8:53 AM CDT Encounter for test, result positive documented in this encounter Results * (ABNORMAL) HCG QUANTITATIVE, BLOOD (06/17/2024 8:53 AM CDT) HCG QUANT, BLOOD 498.0(H) <5.0 mIU/mL 06/17/2024 9:35 AM CDT [facility] [employer] [facility] Comment: HCG Quantitative Reference Range Male <= 2 mIU/mL Female Non premenopausal <= 1 mIU/mL Non postmenopausal <= 7 mIU/mL Gestational Age HCG Concentration 3 Weeks 5.8 - 71.2 mIU/mL 4 Weeks 9.5 - 750 mIU/mL 5 Weeks 217 - 7138 mIU/mL 6 Weeks 158 - 31,795 mIU/mL 7 Weeks 3697 - 163,563 mIU/mL 8 Weeks 32,065 - 149,571 mIU/mL 9 Weeks 63,803 - 151,410 mIU/mL 10 Weeks 46,509 - 186,977 mIU/mL 12 Weeks 27,832 - 210,612 mIU/mL 14 Weeks 13,950 - 62,530 mIU/mL 15 Weeks 12,039 - 70,971 mIU/mL 16 Weeks 9040 - 56,451 mIU/mL 17 Weeks 8175 - 55,868 mIU/mL 18 Weeks 8099 - 58,176 mIU/mL Blood Venipuncture / Unknown 06/17/2024 8:53 AM CDT 06/17/2024 8:53 AM CDT us Reilly Walker MD CHEMISTRY ORDERABLES Final Res ult [facility] [employer] [facility] CLIA# [id number] [address] [place] [address] documented in this encounter Visit Diagnoses Diagnosis Encounter for test, result positive examination or test, positive result documented in this encounter Additional Health Concerns Infection Onset Date Last Indicated Resolved Time R/O GI Pathogen 07/13/2024 07/12/2024 07/13/2024 4 :06 PM CDT R/O C. diff 07/25/2024 07/25/2024 07/26/2024 11:5 3 AM CDT R/O COVID-19 11/19/2024 11/19/2024 11/19/2024 8:59 PM PRODUCT DEVELOPMENT CHEMIST Assessment Noted Time PHQ-9 Depression Total Score: 1 06/03/20 1:44 PM CDT documented as of this encounter Care Teams Cinder Man Relationship Specialty Start Date End Date Gracia Ralph DO [address] [place] [address] PCP - General Family Practice 06/03/24 documented as of this encounter
--- OUTSIDE RECORDS SUMMARY | 2025-06-08 10:13 | XMS_ITS | Encounter Summary ---
Author Organization [facility] Address [address] [place] [address] Care Team Providers Care Uppers Edge Burnisher Name Role Phone Gracia Ralph Primary Care Provider [phone]- [phone] Reason for Visit * Reason Onset Date Comments control/JAM 05/19/2025 Encounter Details Date Type Department Care Team (Late st Contact Info) Description 05/19/2025 Telephone [facility] Todd Bautista [place] [address] [place] [address] Gene Krishnamurthy DO [address] [place] [address] control/JAM Social History Tobacco Use Types Packs/Day Years Used Date Smoking Tobacco: Every Day Cigarettes Passive Smoke Exposure: Yes Smokeless Tobacco: Never Alcohol Use Standard Drinks/Week Comments No 0 (1 standard drink = 0.6 oz pur e alcohol) Comments No Sex and Gender Information Value Date Recorded Sex Assigned at Female 05/16/2024 11:40 AM CDT 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 CBC ordered and provera sent to pharmacy. Pt verbalized understanding. * Telephone Encounter - Percy Khan - 05/19/2025 11:11 AM CDT Pt is calling to speak with medical staff regarding control concerns Pt call back number [phone] documented in this encounter Plan of Treatment Upcoming Encounters Date Type Department Care Team (Late st Contact Info) Description 06/18/2025 1:40 PM CDT Office Visit [facility] Todd Bautista [place] [address] [place] [address] Gene Krishnamurthy DO [address] [place] [address] documented as of this encounter Visit Diagnoses Not on filedocumented in this encounter Additional Health Concerns Assessment Noted Time PHQ-9 Depression Total Score: 1 06/03/20 24 1:44 PM CDT documented as of this encounter Care Teams Uppers Edge Burnisher Relationship Specialty Start Date End Date Gracia Ralph DO [address] [place] [address] PCP - General Family Practice 06/03/24 documented as of this encounter
--- OUTSIDE RECORDS SUMMARY | 2025-06-08 10:13 | XMS_ITS | Encounter Summary ---
Author Organization [facility] Address [address] [address] Phone Care Team Providers Care Invoice Machine Operator Name Role Phone Rakesh Darden MD Primary Care Provider [phone] Encounter Details Date Type Department Care Team (Late st Contact Info) Description 05/28/2021 Orders Only [facility] [address] [place] [address] Mary Estevez [address] [id number] Social History Tobacco Use Types Packs/Day Years Used Date Smoking Tobacco: Never Smokeless Tobacco: Never Alcohol Use Standard Drinks/Week Comments Never 0 (1 standard drink = 0.6 oz pur e alcohol) Humiliation, Afraid, Rape, and Kick questionnair e Answer Date Recorded Within the last year, have y ou been afraid of your partner or ex-partner? No 02/19/2021 Within the last year, have y ou been humiliated or emotionally abused in other ways by your partner or ex-partner? No Within the last year, have y ou been kicked, hit, slapped, or otherwise physically hurt by your partner or ex-partner? No 02/19/2021 Within the last year, have y ou been raped or forced to have any kind of sexual activity by your partner or ex-partner? No 02/19/2021 Social Connection and Isolat ion Panel [NHANES] Answer Date Recorded In a typical week, how many times do you talk on the phone with family, friends, or neighbors? More than three times a week 02/19/2021 How often do you get togethe r with friends or relatives? More than three times a week 02/19/2021 How often do you attend chur ch or quaker services? Never 02/19/2021 Do you belong to any clubs o r organizations such as amish groups, unions, fraternal or athletic groups, or school groups? No 02/19/2021 How often do you attend meet ings of the clubs or organizations you belong to? Never 02/19/2021 Are you , , di vorced, , never , or living with a partner? 02/19/2021 AUDIT-C Answer Date Recorded Q1: How often do you have a drink containing alc ohol? Never 02/19/2021 Q2: How many drinks containi ng alcohol do you have on a typical day when you are drinking? Not asked 02/19/2021 Q3: How often do you have six or more drinks on one occasion? Never 02/19/2021 Overall Financial Resource Strain (CARDIA) Answe r Date Recorded How hard is it for you to pa y for the very basics like food, housing, medical care, and heating? Not hard at all 02/19/2021 PHQ-2 Answer Date Recorded Patient Health Questionnaire-2 Score 2 03/05/2021 [facility] - Occupational Stress Questionnaire Answer Date Recorded Do you feel stress - tense, restless, nervous, or anxious, or unable to sleep at night because your mind is troubled all the time - these days? Very much 02/19/2021 Exercise Vital Sign Answer Date Recorde d On average, how many days pe r week do you engage in moderate to strenuous exercise (like a brisk walk)? 7 days 02/19/2021 On average, how many minutes do you engage in exercise at this level? 90 min 02/19/2021 Hunger Vital Sign Answer Date Recorded Within the past 12 months, y ou worried that your food would run out before you got the money to buy more. Never true 02/20/20 21 Within the past 12 months, t he food you bought just didn't last and you didn't have money to get more. Never true 02/19/2021 PRAPARE - Transportation Answer Date Re corded In the past 12 months, has l ack of transportation kept you from medical appointments or from getting medications? No 01/23 In the past 12 months, has l ack of transportation kept you from meetings, work, or from getting things needed for daily living? No 02/19/2021 Education Answer Date Recorded What is the highest level of school you have completed or the highest degree you have received? Some college, no degree 02/19/2021 Comments Unknown Sex and Gender Information Value Date Recorded Sex Assigned at Not on file Legal Sex Female 11:38 AM CDT Gender Identity Not on file Sexual Orientation Not on file Occupation Industry Job Start Date Job End Date Student Not on file Not on file Not on file documented as of this encounter Plan of Treatment Not on file documented as of this encounter Visit Diagnoses Not on filedocumented in this encounter Care Teams Invoice Machine Operator Relationship Specialty Start Date End Date Rakesh Darden MD PCP - General Family Medicine 03/05/21 documented as of this encounter
--- OUTSIDE RECORDS SUMMARY | 2025-06-08 10:13 | XMS_ITS | Clinical Summary ---
Author Organization [facility] Address [address] [place] [address] Phone Care Team Providers Care Wood Bucker Name Role Phone Rakesh Darden MD Primary Care Provider Allergies Active Allergy Reactions Criticality Noted Date Comments Morphine Rash Low 01/10/2018 Other reaction(s): Unknown Medications albuterol (Proventil;Ventol in) 90 mcg/actuation inhalerIndication s:Mild intermittent asthma without complication Inhale 2 puffs every 4 (four) hours if needed for wheezing. 18 g 11 08/27/2021 Active busPIRone (Buspar) 5 mg tabletIndications :Anxiety Take 1 tablet (5 mg total) by mouth 3 (three) times a day. 270 tablet 3 12/21/2023 Active levETIRAcetam (Keppra) 500 mg tabletIndications :Generalized epilepsy (CMS/HCC) Take 1 tablet (500 mg total) by mouth 2 (two) times a day. 180 tablet 3 12/21/2023 Active Active Problems Problem Noted Date Diagnosed Date Borderline personality disorder 09/05/2023 Endometriosis 03/29/2022 Chronic neck pain 02/16/2022 Chronic bilateral thoracic back pain 02/16/2022 Migraine without aura and wi thout status migrainosus, not intractable 02/16/2022 History of COVID-19 11/16/2021 Attention deficit hyperactiv ity disorder (ADHD), combined type 04/02/2021 Moderate episode of recurrent major depressive d isorder 03/05/2021 Generalized epilepsy 03/05/2021 Mild intermittent asthma without complication Anxiety Resolved Problems Problem Noted Date Diagnosed Date Resolved Date Macromastia 02/16/2022 09/05/2023 Tobacco user 03/05/2021 03/05/2021 Suicide attempt 03/05/2021 03/05/2021 Premature baby 03/05/2021 03/05/2021 Migraine headache 03/05/2021 03/05/2021 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 Immunizations Immunization Administration Dates Next Due DTaP 01/25/2005, 1,06/14/2000,04/05,01/06/2000 Hep B, Unspecified 08/21/2000,04/05/2000, 000 Hib (PRP-T) 08/30/2001, 0,04/05/2000,01/05 IPV 01/25/2005,01/25/2001,04/05/2000 Influenza TIV (IM) 09/15/2008, 7,08/15/2003,09/17 Influenza, Quadrivalent, PF (IIV4) 07/31/2019 Influenza, Unspecified 10/01/2001,08/30/2001, MMR 01/25/2005,01/25/2001 Meningococcal MCV4P 06/07/2018 Pfizer Purple Cap SARS-CoV-2 Vaccination 12/07/2021,11/16/2021 Polio, Unspecified 01/06/2000 Varicella 10/01/2001 Family History Medical History Relation Comments Drug abuse Father Hypertension Maternal Grandmother Anxiety disorder Mother Depression Mother Drug abuse Mother Irritable bowel syndrome Mother Migraines Mother Multiple sclerosis Mother Angioedema Sister 1 Drug abuse Sister 1 Migraines Sister 2 parapaligic Sister 3 Relation Status Comments Brother 1 Alive Brother 2 Alive Father Maternal Grandfather Alive Maternal Grandmother Alive Mother Paternal Grandfather Alive Paternal Grandmother Alive Sister 1 Alive Sister 2 Alive Sister 3 Alive Sister 4 Alive Sister 5 Alive Social History Tobacco Use Types Packs/Day Years Used Date Smoking Tobacco: Former Cigarettes 0.5 2 2 019 - 2020 Smokeless Tobacco: Never Tobacco Cessation:Counseling Given: Not Answered Alcohol Use Standard Drinks/Week Comments Not Currently 0 (1 standard drink = 0.6 oz pur e alcohol) 1-2 times per month Humiliation, Afraid, Rape, and Kick questionnair e [...] 02/19/2021 How often do you attend chur or episcopalian services? Never 02/19/2021 Do you belong to any clubs o r organizations such as advent groups, unions, fraternal or athletic groups, or school groups? No 02/19/2021 How often do you attend meet ings of the clubs or organizations you belong to? Never 02/19/2021 Are you , , di vorced, , never , or living with a partner? 02/19/2021 AUDIT-C Answer Date Recorded Q1: How often do you have a drink containing alc ohol? Monthly or less 12/21/2023 Q2: How many drinks containi ng alcohol do you have on a typical day when you are drinking? 1 or 2 12/21/2023 Q3: How often do you have si x or more drinks on one occasion? Never 12/21/2023 Overall Financial Resource Strain (CARDIA) Answe r Date Recorded How hard is it for you to pa y for the very basics like food, housing, medical care, and heating? Not hard at all 02/19/2021 PHQ-2 Answer Date Recorded Patient Health Questionnaire-2 Score 0 12/21/2023 [facility] - Occupational Stress Questionnaire Answer Date Recorded [...] things needed for daily living? No 02/19/2021 [facility] - Mental Health Answer Date Recorde d Little interest or pleasure in doing things Not at all 12/21/2023 Feeling down, depressed, or hopeless Not at all 12/21/2023 Feeling of Stress Not on file 12/21/2023 Education Answer Date Recorded What is the [...] file Not on file Not on file Last Filed Vital Signs Vital Sign Reading Time Taken Comments Blood Pressure 133/81 12/21/2023 11:08 AM DRYWALL INSTALLER Pulse 78 12/21/2023 11:08 AM DRYWALL INSTALLER Temperature 36.5 C (97.7 F) 12/21/2023 11:08 AM DRYWALL INSTALLER Respiratory Rate 16 03/29/2022 10:36 AM CDT Oxygen Saturation 97% 12/21/2023 11:08 AM DRYWALL INSTALLER Inhaled Oxygen Concentration - - Weight 80.1 kg (176 lb 9.6 oz) 12/21/2023 11:08 AM DRYWALL INSTALLER Height 167.6 cm (5' 6 ) 12/21/2023 11:08 AM DRYWALL INSTALLER Body Mass Index 28.5 12/21/2023 11:08 AM DRYWALL INSTALLER Plan of Treatment Health Maintenance Due Date Last Done Comments Lipid Panel 1999 Varicella Vaccines (2 of 2 - 2-dose childhood series) 02/22/2005 10/01/2001 DTaP,Tdap,and Td Vaccines (6 - Tdap) 2010 01/25/2005, 08/30/2001, 06/14/2000, Additional history exists HPV Vaccines (1 - 3-dose series) 2014 Depression Screening 2017 Social Drivers of Health (SDoH) 2017 Hepatitis A Vaccines (1 of 2 - Risk 2-dose series) 2018 Pneumococcal Vaccine: 50+ Years (1 of 2 - PCV) 2018 Pneumococcal Vaccine (1 of 2 - PCV) 2018 Pap Smear 2020 COVID-19 Vaccine ( - season) 2024 Creatinine Level 09/05/2024 09/05/2023 Potassium Level 09/05/2024 09/05/2023 Influenza Vaccine (#1) 2025 9, 09/15/2008, 09/06/2007, Additional history exists Zoster Vaccines (1 of 2) 2049 10/01/2001 RSV Vaccines (1 - 1-dose 75+ series) 2074 Hepatitis B Vaccines Completed 08/21/2000, 04/05/2000, 01/06/2000 HIB Vaccines Completed 08/30/2001, 05/24, 04/05/2000, Additional history exists IPV Vaccines Completed 01/25/2005, 02/2001, 04/05/2000, Additional history exists MMR Vaccines Completed 01/25/2005, 01/25/2001 Meningococcal Vaccine Completed 06/07/2018 Meningococcal B Vaccine Aged Out No l onger eligible based on patient's age to complete this topic Rotavirus Vaccines Aged Out No longer eligible based on patient's age to complete this topic Procedures Procedure Name Priority Date/Time Associated Diagnosis Comments COMPREHENSIVE METABOLIC PANEL Routine 09/05/2023 1:49 PM DRYWALL INSTALLER Dizziness Hair loss from Last 3 Months or Most Recently Relevant to Health Maintenance Results * Comprehensive Metabolic Panel (09/05/2023 1:49 PM DRYWALL INSTALLER) GLUCOSE 82 65 - 99 mg/dL [facility] Comment: Fasting reference interval UREA NITROGEN (BUN) 9 7 - 25 mg/dL [facility] CREATININE 0.62 0.50 - 0.96 mg/dL [facility] EGFR 128 > OR = 60 mL/min/1. 73m2 [facility] BUN/CREATININE RATIO SEE NOTE: 6 - 22 (calc) [facility] Comment: Not Reported: BUN and Creatinine are within reference range. SODIUM 138 135 - 146 mmol/L [facility] POTASSIUM 3.9 3.5 - 5.3 mmol/L [facility] CHLORIDE 107 98 - 110 mmol/L [facility] CARBON DIOXIDE 27 20 - 32 mmol/L [facility] CALCIUM 8.9 8.6 - 10.2 mg/dL [facility] PROTEIN, TOTAL 6.8 6.1 - 8.1 g/dL [facility] ALBUMIN 4.2 3.6 - 5.1 g/dL [facility] GLOBULIN 2.6 1.9 - 3.7 g/dL (calc) [facility] ALBUMIN/GLOBULI N RATIO 1.6 1.0 - 2.5 (calc) [facility] BILIRUBIN, TOTAL 0.4 0.2 - 1.2 mg/dL [facility] ALKALINE PHOSPHATASE 62 31 - 125 U/L [facility] AST 10 10 - 30 U/L [facility] ALT 7 6 - 29 U/L [facility] Blood Venous blood specimen / Unknown 09/05/2023 1:49 PM DRYWALL INSTALLER 09/06/2023 10:10 AM DRYWALL INSTALLER Narrative Resulting Agency Comment Performing Organization Information: Site ID: [place] Name: [employer] Address: [address] [id number] Director: Long Denise MD us Rakesh Katalina MD LAB BLOOD ORDERABLES Final Resul t [facility] [id number] [id number] from Last 3 Months or Most Recently Relevant to Health Maintenance [place] [address] [place] [address] MEDICAID REPLACEMENT Care Teams Wood Bucker Relationship Specialty Start Date End Date Rakesh Darden MD PCP - General Family Medicine 03/05/21
--- OUTSIDE RECORDS SUMMARY | 2025-06-08 10:13 | XMS_ITS | Encounter Summary ---
Author Organization [facility] Address [address] [place] [id number] Phone Care Team Providers Care Senior Strategy Analyst Name Role Phone Rakesh Darden MD Primary Care Provider [phone] Encounter Details Date Type Department Care Team (Late st Contact Info) Description 09/04/2023 Telephone [facility] [address] [place], [place] [phone] Gladis Phan, CHE[place] [address] [place], [place] [phone] Social History Tobacco Use Types Packs/Day Years Used Date Smoking Tobacco: Former Cigarettes 0.5 2 2 019 - 2020 Smokeless Tobacco: Never Alcohol Use Standard Drinks/Week Comments Yes 3 (1 standard drink = 0.6 oz pur [...] often do you attend chur ch or zoroastrianism services? Never 02/19/2021 Do you belong to any clubs o r organizations such as baptism groups, unions, fraternal or athletic groups, or school groups? No 02/19/2021 How often do you attend meet ings of the clubs or organizations you belong to? Never 02/19/2021 Are you , , di vorced, , never , or living with a partner? 02/19/2021 AUDIT-C Answer Date Recorded Q1: How often do you have a drink containing alc ohol? Monthly or less 09/05/2023 Q2: How many drinks containi ng alcohol do you have on a typical day when you are drinking? 1 or 2 09/05/2023 Q3: How often do you have si x or more drinks on one occasion? Never 09/05/2023 Overall Financial Resource Strain (CARDIA) Answe r Date Recorded How hard is it for you to pa y for the very basics like food, housing, medical care, and heating? Not hard at all 02/19/2021 PHQ-2 Answer Date Recorded Patient Health Questionnaire-2 Score 0 09/05/2023 [facility] - Occupational [...] on file documented as of this encounter Functional Status * Audit-C Score Answer Date of Assessment Author 1 09/05/2023 1:08 PM Diamond Landrum * Question Answer Date of Assessment Author Q1: How often do you have a drink containing alcohol? Monthly or less 09/05/2023 1:08 PM Diamond Landrum Q2: How many drinks containing alcohol do you have on a typical day when you are drinking? 1 or 2 09/05/2023 1:08 PM Diamond Landrum Q3: How often do you have si x or more drinks on one occasion? Never 09/05/2023 1:08 PM Diamond Landrum * Over the past 2 weeks, how often have you been bothered by any of the following problems? Question Answer Date of Assessment Author Little interest or pleasure in doing things Not at all 09/05/2023 1:06 PM Diamond Landrum Feeling down, depressed, or hopeless Not at all 09/05/2023 1:06 PM Diamond Landrum Patient Health Questionnaire -2 Score 0 09/05/2023 1:06 PM Diamond Landrum documented as of this encounter Miscellaneous Notes * Telephone Encounter - Masterlucio Romano - 09/04/2023 10:25 AM CST Patient notified verbalized understanding. Asked to change the appointment scheduled to a regular check up appointment as she has some other concerns she would like to discuss. IC HEALTH TRAINING ASSISTANT * Telephone Encounter - CHELO Nichole - 09/04/2023 9:01 AM CST She has not read the message yet on [employer], please CALL her and let her know the following: Due to her breast pain and post breast reduction she will need to call her surgeon who did the breast reduction and inform them of what is going on. I will not be able to see her for that IC HEALTH TRAINING ASSISTANT documented in this encounter Plan of Treatment Not on file documented as of this encounter Visit Diagnoses Not on filedocumented in this encounter Care Teams Senior Strategy Analyst Relationship Specialty Start Date End Date Rakesh Darden MD PCP - General Family Medicine 03/05/21 documented as of this encounter
--- OUTSIDE RECORDS SUMMARY | 2025-06-08 10:13 | XMS_ITS | Encounter Summary ---
Author Organization [facility] Address [address] [place] [address] Phone Care Team Providers Care Assistant Mechanic Name Role Phone Rakesh Darden MD Primary Care Provider [phone] Reason for Visit * Reason Comments Med Refill Encounter Details Date Type Department Care Team (Late st Contact Info) Description 01/19/2022 Refill [facility] [address] [place], [place] [phone] Rakesh Darden MD [address] [place] [address] [phone] Migraine without aura and without status migrainosus, not intractable Social History Tobacco Use Types Packs/Day Years [...] often do you attend chur ch or jainism services? Never 02/19/2021 Do you belong to any clubs o r organizations such as bahai groups, unions, fraternal or athletic groups, or [...] Recorded Patient Health Questionnaire-2 Score 2 [facility] Answer Date Recorded [...] documented as of this encounter Visit Diagnoses Diagnosis Migraine without aura and without status migrainosus, not intractable documented in this encounter Care Teams Assistant Mechanic Relationship Specialty Start Date End Date Rakesh Darden MD PCP - General Family Medicine 03/05/21 documented as of this encounter
--- OUTSIDE RECORDS SUMMARY | 2025-06-08 10:13 | XMS_ITS | Clinical Summary ---
Author Organization [employer] [facility] Address [address] [facility] Attn: Epic Prelude ADT ROMANA RAMIREZ [id number] Care Team Providers Care Assurance Senior Manager Insurance Name Role Phone Gracia Ralph Primary Care Provider [phone] Allergies Active Allergy Reactions Criticality Noted Date Comments Metoclopramide Hcl Anxiety Low 07/25/2024 Through IV Morphine Rash Low 01/10/2018 Medications vits15/iron/fol ic/dss ( VIT 56-ASQH-OERYX-D SS ORAL) Take 1 Tablet by mouth daily. Active hydrOXYzine HCL (ATARAX) 25 mg tablet Take 1-2 Tablets (25-50 mg) by mouth 3 times daily as needed for Anxiety, Insomnia or Nausea/Emesis (Panic attacks). 60 Tablet 3 4 Active Additional Information Patient not taking.Reported on 03/19/2025 sertraline (Zoloft) 50 mg tablet Take 1 Tablet (50 mg) by mouth daily in the morning. 90 Tablet 5 4 Active ondansetron (ZOFRAN ODT) 4 mg Tablet, Rapid Dissolve Take 1 Tablet (4 mg) by mouth every 8 hours as needed for Nausea/Emesis. Dissolve tablet on top of tongue, then swallow with saliva. 60 Tablet 5 4 Active acetaminophen (TYLENOL) 500 mg tablet Take 500 mg by mouth every 6 hours as needed. Active ondansetron (ZOFRAN ODT) 4 mg Tablet, Rapid Dissolve Take 1 Tablet (4 mg) by mouth every 8 hours as needed for Nausea/Emesis. Dissolve tablet on top of tongue, then swallow with saliva. 30 Tablet 3 5 Active melatonin 5 mg Tablet Take 5 mg by mouth nightly as needed. Active cyclobenzaprine (FLEXERIL) 5 mg Tablet Take 1 Tablet (5 mg) by mouth 3 times daily as needed for Spasm. 20 Tablet 5 Active oxyCODONE (ROXICODONE) 5 mg tabletIndicatio ns:Delivery of by section Take 1 Tablet (5 mg) by mouth every 4 hours as needed for Pain. Max Daily Amount: 30 mg 20 Tablet 02/07/2025 12:58 PM CDT 5 Active NIFEdipine (PROCARDIA XL) 30 mg Extended Release 24 hour tablet Take 1 Tablet (30 mg) by mouth 2 times daily. 60 Tablet 1 02/11/2025 2:01 PM CDT 5 Active escitalopram oxalate (LEXAPRO) 5 mg tablet Take 1 Tablet (5 mg) by mouth daily. 90 Tablet 1 5 Active medroxyPROGESTE Kendell (Provera) 10 mg tablet Take 1 Tablet (10 mg) by mouth daily. 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 t rimester 12/31/2024 Overview (01/30/2025): Ursodiol 300mg BID Bile acids/LFTs wnl Encounter for supervision of normal Overview (01/30/2025): Dated by: T1 US NIPT: LR GDM: passed TDAP: rcvd RSV: - GBS: pending Gender: F Feeding preference: Contraception plan: MOD: MIL 36-39 wks for ICP Panic attacks 08/14/2024 Migraine without aura and wi thout status migrainosus, not intractable 02/16/2022 Attention deficit hyperactiv ity disorder (ADHD), combined type 04/02/2021 Endometriosis determined by laparoscopy 08/30/20 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 Generalized anxiety disorder 11/15/2014 Asthma 10/24/2014 MDD (major depressive disorder) 01/15/2014 Gingival hyperplasia 11/22/2013 Chalazion 02/22/2012 RAD (reactive airway disease) Premature baby IBS (irritable bowel syndrome) Resolved Problems Problem Noted Date Diagnosed Date Resolved Date Viral illness 11/23/2024 12/19/2024 Uterine contractions during 11/19/2024 12/19/2024 Vaginal discharge during pre gnancy in second trimester 11/19/2024 12/19/2024 Sore throat 11/19/2024 12/19/2024 High risk , antepartum 08/14/2024 10/03/2024 Overview (08/14/2024): Loom Changer Diagnoses: Severe Hyperemesis this with 3 hospital admissions Hx endometriosis diagnosed at Laparoscopy Hx anxiety disorder with panic attacks Hx of Depression Hyperemesis gravidarum 07/25/202407/28 Borderline personality disorder 09/05/2023 06/03/2024 Chronic bilateral thoracic back pain 02/16/2022 06/03/2024 Chronic neck pain 02/16/2022 06/03/2024 History of COVID-19 11/16/2021 06/03/20 24 Insomnia 11/15/2014 06/03/2024 Mild intermittent asthma without complication 10/24/19 15 06/03/2024 Constipation 11/18/2010 12/19/2024 Encounters Date Type Department Care Team Description 05/28/2025 External Device Data STL ABSTRACTION Provider, Abstract 05/19/2025 Orders Only [facility] Michele [place] [address] [place] [id number] Susu Stephenson NP Breakthrough bleeding with IUD (Primary Dx) 05/19/2025 Telephone [facility] Todd Erickson [place] [address] [place] [address] Gene Krishnamurthy, DO control/JAM 05/07/2025 External Device Data STL ABSTRACTION Provider, Abstract 05/07/2025 External Device Data STL ABSTRACTION Provider, Abstract 04/22/2025 External Device Data STL ABSTRACTION Provider, Abstract 04/15/2025 External Device Data STL ABSTRACTION Provider, Abstract 03/19/2025 11:50 AM CDT [facility] [place] [address] [place] [id number] Gene Krishnamurthy, Encounter for visit (Primary Dx); Encounter for counseling regarding contraception; Nexplanon insertion; anxiety; Negative test 03/18/2025 External Device Data STL ABSTRACTION Provider, Abstract 03/13/2025 External Device Data STL ABSTRACTION Provider, Abstract 03/13/2025 External Device Data STL ABSTRACTION Provider, Abstract 03/13/2025 External Device Data STL ABSTRACTION Provider, Abstract 03/12/2025 External Device Data STL ABSTRACTION Provider, Abstract from Last 3 Months Immunizations Immunization Administration Dates Next Due (ACTHIB/HIBERIX)(2 MOS-5 YRS /6 WKS-4 YRS) HAEMOPHILUS INFLUENZAE TYPE B VACCINE (HIB), PRP-T CONJUGATE, 4 DOSE, 0.5 ML IM 08/30/2001,06/14/2000,04/05/2000,01/05 (ADACEL/BOOSTRIX)(10 YR UP) TDAP VACCINE, 0.5ML, IM 12/05/2024 (M-M-R II/PRIORIX)(12 MO UP) MEASLES, MUMPS AND RUBELLA VIRUS VACCINE, 0.5 ML IM/SUBCUT 01/25/2005,01/25/2001 (MENACTRA)(9 MO-55 YR) MENIN GOCOCCAL POLYSACCHARIDE A, C, Y AND W-135 DIPTHERIA TOXOID CONJUGATE VACCINE, (PF), 0.5ML, IM 06/07/2018 (VARIVAX)(12 MOS UP)VARICELL A VIRUS VACCINE (PF) 0.5 ML, SUB CUT 10/01/2001 Dt Dtp Dtap Vaccine 01/25/2005, 1,06/14/2000,04/05,01/06/2000 HIB, Unspecified Formulation 08/30/2001, 06/14/2000,04/05/2000,01/05 Hepatitis B Vaccine 08/21/2000,04/05/2000,1999 Hepatitis B Vaccine, Unspeci fied Formulation 08/21/2000,04/05/2000,01/06/2000 INFLUENZA VACCINE QUADRIVALE NT 6 MOS UP PF IM 07/31/2019 IPV/OPV 01/25/2005, 1,04/05/2000,01/05 Influenza Seasonal Unspecifi ed Formulation IM 09/06/2007,08/15/2003,09/17/2002,10/01,08/30/2001,08/21/2000 Influenza Vaccine Split 3+ Yrs IM 09/15/2008 Influenza, Unspecified Formulation 10/01/2001,,08/21/2000 Poliovirus Vaccine, Unspecif ied Formulation 01/06/2000 Family History Medical History Relation Name Comments Depression Father Timo Obando Healthy Father Timo Obando Mental illness Father Timo Obando Other Father Timo Obando from dr [facility] overdose Depression Mother Roro Ng Endometriosis Mother Roro Ng Healthy Mother Roro Ng Mental illness Mother Roro Ng Multiple Sclerosis Mother Roro Ng Other Mother Roro Ng from dr [place] overdose Breast Cancer Other great mat. grandmother Angioedema Sister Colon Cancer Neg Hx Relation Name Status Comments Father Timo Obando Mother Roro Ng Other great mat. 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 SPECIALIST Gender Identity Female 05/16/2024 11:40 AM CDT Sexual Orientation Not on file Occupation Industry Job Start Date Job End Date unemployed Not on file Not on file Not on file Last Filed Vital Signs Vital Sign Reading Time Taken Comments Blood Pressure 122/74 03/19/2025 11:19 AM CDT Pulse 90 02/11/2025 12:38 PM CDT Temperature 36.4 C (97.5 F) 02/11/2025 12:38 PM CDT Respiratory Rate 16 02/11/2025 12:38 PM CDT Oxygen Saturation 99% 02/11/2025 12:38 PM CDT Inhaled Oxygen Concentration - - Weight 88.2 kg (194 lb 6.4 oz) 03/19/2025 11:19 AM CDT Height 167.6 cm (5' 6 ) 02/09/2025 7:31 PM CDT Body Mass Index 31.38 02/09/2025 7:31 PM CDT Plan of Treatment Upcoming Encounters Date Type Department Care Team (Late st Contact Info) Description 06/18/2025 1:40 PM CDT Office Visit [facility] Todd Erickson [place] [address] [place] [address] Gene Krishnamurthy, [address] [place] [address] Health Maintenance Due Date Last Done Comments HPV VACCINES (1 - 3-dose series) 2014 CERVICAL CANCER SCREENING 2020 HPV/Cotest (21-29) 2020 PAP SMEAR 2020 COVID-19 Vaccine ( - 2023-2 5 season) 2024 12/07/2021, 11/16/2021 INFLUENZA VACCINE (#1) 2025 9, 09/15/2008, 09/06/2007, Additional history exists Preventative Visit-Managed Medicaid 06/04/2025 06/03/2024, 05/20/2024 DTAP/TDAP/TD VACCINES (7 - T d or Tdap) 12/05/2034 12/05/2024, 01/25/2005, 08/30/2001, Additional history exists HEPATITIS B VACCINES Completed 08/21/2000, 08/21/2000, 04/05/2000, Additional history exists CHLAMYDIA SCREENING (ANNUAL) 11-24 YEARS Discontinued 06/23/2024, 02/21/2019 Procedures Procedure Name Priority Date/Time Associated Diagnosis Comments POC , URINE Routine 03/19/2025 12:00 PM CDT Nexplanon insertion Negative test FL INSERTION DRUG DELIVERY IMPLANT Routine 03/19/2025 11:50 AM CDT Nexplanon insertion GC/CHLAMYDIA, UROGENITAL Stat 06/23/2024 9:27 AM CDT from Last 3 Months or Most Recently Relevant to Health Maintenance Results * POC , URINE (03/19/2025 12:00 PM CDT) HCG QUAL URINE POC Negative Negative, Indeterminate [facility] [place] INTERNAL KIT QC POC Pass Pass [facility] [place] KIT [address] POC [id number] [facility] [place] KIT EXP DATE POC 03-05-2026 [facility] [place] Urine 03/19/2025 12:0 0 PM CDT Gene Krishnamurthy DO POINT OF CARE TESTING Final Result Performing Organization Address [facility] Co de Phone Number [facility] CLIA# [id number] [address] [place] [address] * FL INSERTION DRUG DELIVERY IMPLANT (03/19/2025 11:50 AM CDT) Narrative [facility] - 03/19/2025 11:50 AM CDT Gene Krishnamurthy DO 03/19/2025 2:35 PM Progestin Implant Date/Time: 03/19/2025 11:50 AM Performed by: Gene Krishnamurthy DO Authorized by: Gene Krishnamurthy DO Indication: Indication: Insertion of non-biodegradable drug delivery implant Procedure: Procedure: Insertion Comments: A site was selected on the upper left arm a couple centimeters below the sulcus. This area was marked with a marking pen and then prepped with Betadine. The area was then anesthetized with approximately 10 mL of lidocaine 1% with epinephrine. The Nexplanon was then inserted into the site per the scientific editor's instructions. Both the patient and I palpated the intact implant following insertion. A pressure dressing was applied and care instructions reviewed. Gene Krishnamurthy DO PROCEDURE/MINOR SURGICAL ORD ERABLES Final Result Performing Organization Address [facility] Co de Phone Number [facility] CLIA# [id number] [address] [place] [address] * GC/CHLAMYDIA, UROGENITAL (06/23/2024 9:27 AM CDT) CHLAMYDIA DNA AMPLIFICATION NOT DETECTED Not Detected 06/23/2024 5:41 PM CDT [facility] GC DNA AMPLIFICATION NOT DETECTED Not Detected 06/23/2024 5:41 PM CDT [facility] Genital Collection / Unknown 06/23/2024 9:27 AM CDT 06/23/2024 9:31 AM CDT Narrative [facility] - 06/23/2024 5:41 PM CDT Results should not be used for the evaluation of suspected sexual abuse or for other medico-legal indications. The only legally accepted results are from culture. Results cannot be used to assess therapeutic success or failure since nucleic acids may persist following antimicrobial therapy. Jennifer Bartholomew MD MICROBIOLOGY - GENERAL ORD ERABLES Final Result [id number] [address] [place] [address] from Last 3 Months or Most Recently Relevant to Health Maintenance Insurance [employer] RX INFOCROSSING Medicaid Advance Directives For more information, please contact: [phone] * Full Code (Latest Code Status on File) Date Activated Date Inactivated Comments 02/09/2025 7:49 PM 02/11/2025 4:08 PM * Full Code Date Activated Date Inactivated Comments 02/04/2025 2:28 PM 02/07/2025 3:47 PM * Full Code Date Activated Date Inactivated Comments 01/31/2025 11:42 PM 02/01/2025 5:16 AM * Full Code Date Activated Date Inactivated Comments 01/26/2025 2:35 AM 01/26/2025 7:29 AM * Full Code Date Activated Date Inactivated Comments 01/15/2025 5:26 PM 01/15/2025 11:11 PM Care Teams Assurance Senior Manager Insurance Relationship Specialty Start Date End Date Gracia Ralph DO [address] [place] [address] PCP - General Family Practice 06/03/24
[2025-06-08 10:14] VITALS: BP 152/105; PULSE 100; RESP 16; O2SAT 98
--- NOTE | 2025-06-08 10:47 | W.ED.SKABFB ---
HPI - Skin/Abscess/Foreign Bdy General: Chief complaint: Skin/Abscess/Foreign Body Stated complaint: golfball lump inner thigh Time Seen by Provider: 06/08/25 10:36 Source: patient Mode of arrival: ambulatory Limitations: no limitations History of Present Illness: 24-year-old female had an abscess to her right upper inner leg over the last week. She states she has had a purulent drainage from it she denies any fevers she does have some pain she rates a 4 out of 10 denies any worsening improving factors. Associated symptoms: Deny chills, fever(s), nausea or vomiting Related Data Home Medications ?Medication ?Instructions ?Recorded ?Confirmed buspirone 15 mg tablet 15 mg PO TID 10/29/21 11/19/24 dextroamphetamine-amphetamine 15 15 mg PO BID 10/29/21 11/19/24 mg tablet (Adderall) Previous Rx's ?Medication ?Instructions ?Recorded sulfamethoxazole 800 1 tab PO BID 10 days #20 tabs 06/08/25 mg-trimethoprim 160 mg tablet (Bactrim DS) Allergies Allergy/AdvReac Type Severity Reaction Status Date / Time metoclopramide (From Reglan) Allergy Unknown Verified 11/19/24 15:47 morphine Allergy rash Verified 11/19/24 15:47 Review of Systems Const: Denies: fever(s), chills, body aches or change in appetite ENMT: Denies: throat pain or dental pain Card: Denies: chest pain Resp: Reports: dyspnea GI: Denies: abdominal pain, nausea, vomiting or diarrhea Musc: Denies: neck pain or back pain Skin/Breast: Denies: rash Neuro: Denies: headache(s) PFSH ED PFSH: Medical History Encounter for incision and drainage procedure Abscess of lip No significant past medical history Surgical History No pertinent past surgical history Social History Smoking and tobacco/nicotine status: unknown if used tobacco/nicotine Physical Exam Const: COMMON NORMALS: no acute distress, patient oriented x3 and healthy appearing HENMT: COMMON NORMALS: normocephalic and atraumatic HEAD & SCALP: normocephalic and atraumatic Neck/C-Spine: COMMON NORMALS: full ROM and supple Chest: COMMONS NORMALS: normal inspection of the chest Resp: COMMON NORMALS: normal respiratory effort Cardio: COMMON NORMALS: regular rate RATE: regular rate Extremity: COMMON NORMALS: normal to inspection and full ROM Neuro: COMMON NORMALS: patient oriented x3, moves all extremities and no focal motor deficits Psych: COMMON NORMALS: mental status grossly normal, Normal thought process present and cooperative THOUGHT PROCESS: Normal thought process present Skin: NARRATIVE SKIN EXAM: 3 cm abscess noted to right inner upper leg Procedures Abscess I/D Site: lower extremity Side (if applicable): right Local Anesthetic: lidocaine 1% Amount of anesthesia used (mL): 8 Technique: incised with #11 blade Packing used?: none Course Vital Signs: Vital signs: Vital Signs Pulse Rate 100 06/08/25 10:14 Respiratory Rate 16 06/08/25 10:14 Blood Pressure 152/105 06/08/25 10:14 Pulse Oximetry 98 06/08/25 10:14 Oxygen Delivery Me thod Room Air 06/08/25 10:14 MDM - Skin/Abscess/Foreign Bdy Medicial Decision Making Patient presents for an abscess to her inner thigh did extend the incision we will place her on Bactrim she is to follow-up PCP and return if worsening Medical Records I reviewed the patient's medical records. No radiology studies performed this visit Discharge Plan Discharge Patient Disposition: Home Clinical Impression: Abscess of skin or subcutaneous tissue Condition: Stable Prescriptions: New sulfamethoxazole-trimethoprim [Bactrim DS] 800-160 mg tablet 1 tab PO BID 10 Days Qty: 20 0RF No Action buspirone 15 mg tablet 15 mg PO TID dextroamphetamine-amphetamine [Adderall] 15 mg tablet 15 mg PO BID Rx Instructions: administer doses at least 4-6 hours apart Discharge Orders: Discharge ED (Routine); Ordered 06/08/25 Ordered By: Lis Patton Referrals: Ariadna Delacruz FNP [Primary Care Provider, Family Practice] - 4-7 days Discharge Diet: Advance as tolerated Discharge Activity: Resume usual activity Patient Instructions: Abscess (ED) Print Language: [place] Islander Coding Level of Care Code ED 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
[2025-06-08] MEDS: HYDROcodone-acetaminophen 5-325 mg Tablet 1 TAB PO (11:12)
== END 2025-06-08 11:20 | disposition home or self-care (01) ==
PROVIDERS: Emergency Provider Emergency Medicine
DX: L02.415 Cutaneous abscess of right lower limb (principal)
CPT/HCPCS: 10060; 99283; J9999

== ENCOUNTER 2025-08-16 12:30 | Emergency (ER) | payer BC, MEDICAID, SELFPAY ==
--- OUTSIDE RECORDS SUMMARY | 2025-08-16 10:39 | XMS_ITS | Encounter Summary ---
Author Organization [facility] Address [address] [place] [address] Care Team Providers Care Senior Rd Engineer Name Role Phone Gracia Ralph DO Primary Care Provider [phone] Reason for Visit * Reason Comments Pelvic Pain Encounter Details Date Type Department Care Team (Late st Contact Info) Description 08/16/2025 10:39 AM CDT - 08/16/2025 11:49 AM CDT Emergency [facility] Emergency Medicine [address] [place] [address] Yifan Scanlon MD [address] [place] [phone] Pelvic pain in female (Primary Dx) Discharge Disposition: Left Against Medical Advice Social History Tobacco Use Types Packs/Day Years Used Date Smoking Tobacco: Every Day Cigarettes Passive Smoke Exposure: Yes Smokeless Tobacco: Never Alcohol Use Standard Drinks/Week Comments No 0 (1 standard drink = 0.6 oz pur e alcohol) Food Insecurity Answer Date Recorded Do you find you are eating l ess than you should because you can t pay for food? No 08/16/2025 Transportation Needs Answer Date Record ed Have you gone without health care because you didn t have a way to get there? Or worry about transportation for future doctor visits, curing pickling packer medication, etc.? No 2024 Housing Stability Answer Date Recorded Do you worry you won t have a steady place to sleep or struggle to pay rent or mortgage? No 08/16/2025 Utility Needs Answer Date Recorded Do you have difficulty payin g for utility costs (electric, water or gas bills)? No 08/16/2025 Medication Needs Answer Date Recorded Have you skipped taking medi cation due to cost or worry you can t afford new medications? No 08/16/2025 Feeling Safe Answer Date Recorded Are you in a relationship wi th someone who hurts you emotionally and/or physically? No 08/16/2025 Food Insecurity Answer Date Recorded Patient needs follow up regardin 02/15/2025 Transportation Needs Answer Date Record ed Patient needs follow up regardin 02/15/2025 Housing Stability Answer Date Recorded Social/Environmental Concerns No concerns Utility Needs Answer Date Recorded Patient needs follow up regardin 02/15/2025 Comments No Sex and Gender Information Value Date Recorded Sex Assigned at Female 05/16/2024 11:40 AM CDT Legal Sex Female 1:08 AM [employer] Gender Identity Female 05/16/2024 11:40 AM CDT Sexual Orientation Not on file Occupation Industry Job Start Date Job End Date unemployed Not on file Not on file Not on file documented as of this encounter Last Filed Vital Signs Vital Sign Reading Time Taken Comments Blood Pressure 118/88 08/16/2025 11:45 AM CDT Pulse 71 08/16/2025 11:45 AM CDT Temperature 36 C (96.8 F) 08/16/2025 10:44 AM CDT Respiratory Rate 16 08/16/2025 11:45 AM CDT Oxygen Saturation 99% 08/16/2025 11:45 AM CDT Inhaled Oxygen Concentration - - Weight 85.7 kg (189 lb) 08/16/2025 10:44 AM CDT Height 167.6 cm (5' 6 ) 08/16/2025 10:44 AM CDT Body Mass Index 30.51 08/16/2025 10:44 AM CDT documented in this encounter Medications at Time of Discharge medroxyPROGESTERo ne (Provera) 10 mg tablet Take 1 Tablet (10 mg) by mouth daily. 10 Tablet 05/19/2025 escitalopram oxalate (LEXAPRO) 5 mg tablet Take 1 Tablet (5 mg) by mouth daily. 90 Tablet 1 03/19/2025 NIFEdipine (PROCARDIA XL) 30 mg Extended Release 24 hour tablet Take 1 Tablet (30 mg) by mouth 2 times daily. 60 Tablet 1 02/11/2025 2:01 PM CDT 02/11/2025 oxyCODONE (ROXICODONE) 5 mg tabletIndications :Delivery of by section Take 1 Tablet (5 mg) by mouth every 4 hours as needed for Pain. Max Daily Amount: 30 mg 20 Tablet 02/07/2025 12:58 PM CDT 02/07/2025 cyclobenzaprine (FLEXERIL) 5 mg Tablet Take 1 Tablet (5 mg) by mouth 3 times daily as needed for Spasm. 20 Tablet 01/09/2025 melatonin 5 mg Tablet Take 5 mg by mouth nightly as needed. ondansetron (ZOFRAN ODT) 4 mg Tablet, Rapid Dissolve Take 1 Tablet (4 mg) by mouth every 8 hours as needed for Nausea/Emesis. Dissolve tablet on top of tongue, then swallow with saliva. 30 Tablet 3 12/13/2024 acetaminophen (TYLENOL) 500 mg tablet Take 500 mg by mouth every 6 hours as needed. vits15/iron/folic /dss ( VIT 31-[id number]-DSS ORAL) Take 1 Tablet by mouth daily. hydrOXYzine HCL (ATARAX) 25 mg tablet Take 1-2 Tablets (25-50 mg) by mouth 3 times daily as needed for Anxiety, Insomnia or Nausea/Emesis (Panic attacks). 60 Tablet 3 08/14/2024 sertraline (Zoloft) 50 mg tablet Take 1 Tablet (50 mg) by mouth daily in the morning. 90 Tablet 5 08/14/2024 ondansetron (ZOFRAN ODT) 4 mg Tablet, Rapid Dissolve Take 1 Tablet (4 mg) by mouth every 8 hours as needed for Nausea/Emesis. Dissolve tablet on top of tongue, then swallow with saliva. 60 Tablet 5 08/14/2024 documented as of this encounter ED Notes * Nova Streeter RN - 08/16/2025 11:49 AM CDT Patient stating that she could have taken tylenol at home, so she feels like this visit was waste of time. Patient reports history of endometrial surgery, and states she feels like she is being treated like I have period cramps. Patient requesting to leave. Patient's IV removed. AMA form signedat this time. Dr. Scanlon notified. * Nova Streeter RN - 08/16/2025 11:40 AM CDT Patient refusing toradol injection. States it gives her anxiety. This RN explained that I would addthat to her allergy list and notify the provider. Discussed with Dr. Scanlon. Plan to only administer the tylenol and fluids at this time. * Nova Streeter RN - 08/16/2025 10:51 AM CDT Patient presents to the emergency department via private vehicle for pelvic pain. Patient states she developed pelvic pain after having intercourse this morning. States she did have a six months ago, and this is not the first time she has had intercourse since giving . Patient statesshe did have post- depression and pre-eclampsia, but denies other complications with the /delivery. Denies vaginal bleeding or discharge. Notes she does have an IUD in place. Vital signs as documented. * Yifan Scanlon MD - 08/16/2025 10:39 AM CDT HISTORY OF PRESENT ILLNESS The patient is a 24-year-old female who states that she was having intercourse this morning and immediately afterwards she developed lower pelvic pain. She said it was cramping on both sides of the lower abdomen and that she has an IUD in and she has had some intermittent spotting for about 6 to 8 weeks since it was placed. She has not taken anything for her pelvic discomfort and she comes in forfurther evaluation and treatment. She says that she had a done about 6 months ago and hashad intercourse since then and has not developed this type of pain. She says that due to the IUD her menstrual cycle is irregular with intermittent spotting. History provided by: The patient and medical records attending pathologist used: No Arrived by: Private vehicle Arrived from: Home Pelvic Pain Context: after intercourse Relieved by: None tried Worsened by: Nothing Sexual activity: Sexually active Control: IUD now: No PAST MEDICAL HISTORY REVIEWED MEDICAL: Patient has a past medical history of Anxiety, Asthma, Bipolar 2 disorder, major depressive episode([facility]), Borderline personality disorder ([facility]) (09/05/2023), Chronic bilateral thoracic back pain (02/16/2022), Chronic neck pain (02/16/2022), Difficult intravenous access, Endometriosis, GI problem, Headache, IBS (irritable bowel syndrome), Mild intermittent asthma without complication (10/24/2014), Motion sickness, Post-operative nausea and vomiting, Premature baby, PTSD (post-traumatic stress disorder), and Seizure disorder ([facility]). SURGICAL: Patient has a past surgical history that includes pr colonoscopy flx dx w/collj spec when pfrmd (N/A, 01/26/2018); pr arthrs kne surg w/meniscectomy med/lat w/shvg (12/25/2013); pr arthroscopy knee diagnostic w/wo synovial bx spx (12/25/2013); pr arthroscopy knee synovectomy limited spx (Left, 12/25/2013);pr exc chalazion anes req hospization single/mult (03/16/2012); chg anes excis chalazion,gen anesthesia (5.25.12); cholecystectomy (2010); tonsillectomy; appendectomy (2007); dilation and curettage; pelvic laparoscopy; breast reduction (2022); and section (N/A, 02/05/2025). ALLERGIES Ketorolac, Metoclopramide hcl, and Morphine PHYSICAL EXAM INITIAL VS BP: 126/89 (08/16/25 1044), Heart Rate: 74 bpm (08/16/25 1044), Resp: 16 (08/16/25 1044), Pulse: 76(08/16/25 1100), Temp: 96.8 ??F (36 ??C) (08/16/25 1044), Temp src: Temporal (08/16/25 1044), SpO2:98 % (08/16/251043), Height: 5' 6 (167.6 cm) (08/16/251043), Weight: 85.7 kg (189 lb) (08/16/251043), BMI (Calculated): (!) 30.51 (08/16/251043) No LMP recorded. Physical Exam Vitals and nursing note reviewed. Constitutional: Appearance: Normal appearance. HENT: Head: Normocephalic and atraumatic. Right Ear: External ear normal. Left Ear: External ear normal. Nose: Nose normal. Mouth/Throat: Mouth: Mucous membranes are moist. Pharynx: Oropharynx is clear. Eyes: Extraocular Movements: Extraocular movements intact. Cardiovascular: Rate and Rhythm: Normal rate and regular rhythm. Heart sounds: Normal heart sounds. Pulmonary: Effort: Pulmonary effort is normal. Breath sounds: Normal breath sounds. Abdominal: General: Bowel sounds are normal. Palpations: Abdomen is soft. Tenderness: There is abdominal tenderness. There is no right CVA tenderness, left CVA tenderness, guarding or rebound. Musculoskeletal: General: Normal range of motion. Cervical back: Normal range of motion and neck supple. No rigidity or tenderness. Skin: General: Skin is warm and dry. Neurological: General: No focal deficit present. Mental Status: She is alert and oriented to person, place, and time. Mental status is at baseline. Psychiatric: Mood and Affect: Mood normal. Behavior: Behavior is cooperative. Thought Content: Thought content normal. DIAGNOSTICS LAB: URINALYSIS WITH REFLEX MICROSCOPIC - Abnormal Result Value COLOR UA Yellow CLARITY UA Slightly Cloudy (*) SPECIFIC GRAVITY UA >=1.030 PH UA 7.0 LEUKOCYTE ESTERASE UA Negative NITRITE UA Negative PROTEIN UA 1+ (*) GLUCOSE UA Negative KETONES UA Negative UROBILINOGEN UA 1.0 BILIRUBIN UA Negative BLOOD UA Trace (*) URINALYSIS MICROSCOPY ONLY - Abnormal WBC UA 0-2 RBC UA 0-2 BACTERIA UA 1+ (*) EPITHELIAL CELLS, URINE 11-25 (*) HCG QUALITATIVE, URINE - Abnormal HCG QUAL URINE Negative COLOR UA Yellow CLARITY UA Slightly Cloudy (*) RADIOLOGY: No orders to display EKG: PROCEDURES Procedures MEDICAL DECISION MAKING AND PLAN OF CARE Medical Decision Making The patient was offered Toradol but then declined it as she said it makes her anxious. This was notlisted as one of her allergies initially. She said that she was only allergic to morphine. She thendecided to sign out AMA and did not want any more treatment. Amount and/or Complexity of Data Reviewed Labs: ordered. Risk OTC drugs. Prescription drug management. Clinical Scoring & Consults Medications Administered During the ED Stay from 08/16/2025 1039 to 08/16/2025 1231 Date/Time Order Dose Route Action 08/16/2025 1149 CDT sodium chloride 0.9 % bolus solution 1,000 mL 0 mL IV Stopped 08/16/2025 1142 CDT sodium chloride 0.9 % bolus solution 1,000 mL 1,000 mL IV New Bag 08/16/2025 1142 CDT ketorolac (TORADOL) injection 30 mg 30 mg IV Refused 08/16/2025 1139 CDT acetaminophen (TYLENOL) tablet 1,000 mg 1,000 mg Oral Given Discharge Medication List as of 08/16/2025 12:03 PM CONTINUE these medications which have NOT CHANGED Details medroxyPROGESTERone (Provera) 10 mg tablet Take 1 Tablet (10 mg) by mouth daily., Disp-10 Tablet, R-0 escitalopram oxalate (LEXAPRO) 5 mg tablet Take 1 Tablet (5 mg) by mouth daily., Disp-90 Tablet, R-1 NIFEdipine (PROCARDIA XL) 30 mg Extended Release 24 hour tablet Take 1 Tablet (30 mg) by mouth 2 times daily., Disp-60 Tablet, R-1 oxyCODONE (ROXICODONE) 5 mg tablet Take 1 Tablet (5 mg) by mouth every 4 hours as needed for Pain. Max Daily Amount: 30 mg, Disp-20 Tablet, R-0 cyclobenzaprine (FLEXERIL) 5 mg Tablet Take 1 Tablet (5 mg) by mouth 3 times daily as needed for Spasm., Disp-20 Tablet, R-0 melatonin 5 mg Tablet Take 5 mg by mouth nightly as needed. !! ondansetron (ZOFRAN ODT) 4 mg Tablet, Rapid Dissolve Take 1 Tablet (4 mg) by mouth every 8 hoursas needed for Nausea/Emesis. Dissolve tablet on top of tongue, then swallow with saliva., Disp-30 Tablet, R-3 acetaminophen (TYLENOL) 500 mg tablet Take 500 mg by mouth every 6 hours as needed. vits15/iron/folic/dss ( VIT 66-EGJO-UOSYC-DSS ORAL) Take 1 Tablet by mouth daily. hydrOXYzine HCL (ATARAX) 25 mg tablet Take 1-2 Tablets (25-50 mg) by mouth 3 times daily as needed for Anxiety, Insomnia or Nausea/Emesis (Panic attacks)., Disp-60 Tablet, R-3 sertraline (Zoloft) 50 mg tablet Take 1 Tablet (50 mg) by mouth daily in the morning., Disp-90 Tablet, R-5 !! ondansetron (ZOFRAN ODT) 4 mg Tablet, Rapid Dissolve Take 1 Tablet (4 mg) by mouth every 8 hoursas needed for Nausea/Emesis. Dissolve tablet on top of tongue, then swallow with saliva., Disp-60 Tablet, R-5 !! - Potential duplicate medications found. Please discuss with provider. LAST VS BP: 118/88 (08/16/25 1145), Heart Rate: 74 bpm (08/16/25 1044), Resp: 16 (08/16/25 1145), Pulse: 71(08/16/25 1145), Temp: 96.8 ??F (36 ??C) (08/16/25 1044), Temp src: Temporal (08/16/25 1044), SpO2:99 % (08/16/25 1145) CLINICAL IMPRESSION Diagnosis Diagnosis Comment Added By Time Added Pelvic pain in female [R10.20] Yifan Scanlon MD 08/16/2025 12:31 PM DISPOSITION, EDUCATION AND MEDICATION RECONCILIATION Medications reconciled. See after visit summary for patient education on discharged patients. ED Disposition ED Disposition AMA Condition -- User Yifan Scanlon MD Date/Time Sat Aug 16, 2025 12:00 PM Comment -- ATTESTATION STATEMENTS documented in this encounter Plan of Treatment Upcoming Encounters Date Type Department Care Team (Late st Contact Info) Description 08/20/2025 9:45 AM CDT Office Visit [facility] [place] [address] [address] Arnol Brunson C, DO [address] [facility] [address] [place] [address] documented as of this encounter Procedures Procedure Name Priority Date/Time Associated Diagnosis Comments CBC WITH DIFFERENTIAL Stat 08/16/2025 11:39 AM CDT BASIC METABOLIC PANEL Stat 08/16/2025 11:39 AM CDT URINALYSIS MICROSCOPY ONLY Stat 08/16/2025 11:12 AM CDT URINALYSIS W/REFLEX MICROSCOPIC Stat 08/16/2025 11:12 AM CDT HCG QUALITATIVE, URINE Stat 08/16/2025 11:12 AM CDT documented in this encounter Results * BASIC METABOLIC PANEL (08/16/2025 11:39 AM CDT) SODIUM 137 136 - 145 mmol/L 08/16/2025 12:03 PM T [facility] POTASSIUM 3.9 3.5 - 5.1 mmol/L 08/16/2025 12:03 PM [facility] CHLORIDE 105 98 - 107 mmol/L 08/16/2025 12:03 PM [facility] CO2 23 22 - 29 mmol/L 08/16/2025 12:03 PM [facility] CALCIUM 9.1 8.6 - 10.0 mg/dL 08/16/2025 12:03 PM [facility] BUN 8 6 - 20 mg/dL 08/16/2025 12:03 PM [facility] CREATININE 0.58 0.51 - 0.95 mg/dL 08/16/2025 12:03 PM [facility] GLUCOSE 88 74 - 99 mg/dL 08/16/2025 12:03 PM [facility] GFR >60 >=60 mL/min/1.7 3 sq meter 08/16/2025 12:03 PM [facility] Comment:eGFR calculated with 2020 CKD-EPI equation. Vegetarian diet, extremely high or low muscle mass, and may affect results. Cystatin C with Glomerular Filtration Rate is a suitable alternative for these patients. ANION GAP 9 5 - 20 mmol/L 08/16/2025 12:03 PM [facility] Blood BLOOD SPECIMEN / Unknown Collection / Unknown 08/16/2025 11:39 AM CDT 08/16/2025 11:49 AM CDT us Yifan Scanlon MD CHEMISTRY ORDERABLES Final Result [facility] CLIA # [id number] [address] [place] [address] * (ABNORMAL) CBC WITH DIFFERENTIAL (08/16/2025 11:39 AM CDT) WBC 10.3(H) 4.0 - 10.0 K/uL 08/16/2025 11:52 AM [facility] RBC 4.24 3.93 - 5.22 M/uL 08/16/2025 11:52 AM [facility] HEMOGLOBIN 11.4 11.2 - 15.7 g/dL 08/16/2025 11:52 AM [facility] HEMATOCRIT 34.5 34.1 - 44.9 % 08/16/2025 11:52 AM [facility] MCV 81.4 79.4 - 94.8 fL 08/16/2025 11:52 AM [facility] MCH 26.9 25.6 - 32.2 pg 08/16/2025 11:52 AM [facility] MCHC 33.0 32.2 - 35.5 g/dL 08/16/2025 11:52 AM [facility] RDW 14.6(H) 11.0 - 14.5 % 08/16/2025 11:52 AM [facility] RDW-STDEV 42.6 36.9 - 56.9 fL 08/16/2025 11:52 AM [facility] PLATELETS 383(H) 163 - 337 K/uL 08/16/2025 11:52 AM [facility] MPV 8.8(L) 10.0 - 14.8 fL 08/16/2025 11:52 AM [facility] NEUTROPHILS 77(H) 34 - 71 % 08/16/2025 11:52 AM [facility] LYMPHOCYTES 13(L) 19 - 52 % 08/16/2025 11:52 AM [facility] MONOCYTES 6 5 - 13 % 08/16/2025 11:52 AM [facility] EOSINOPHILS 2 1 - 6 % 08/16/2025 11:52 AM [facility] BASOPHILS 1 0 - 1 % 08/16/2025 11:52 AM [facility] IMMATURE GRANULOCYTES 1 % 08/16/2025 11:52 AM [facility] NEUTROPHIL ABSOLUTE 7.95(H) 1.56 - 6.13 K/uL 08/16/2025 11:52 AM [facility] LYMPHOCYTE ABSOLUTE 1.36 1.20 - 3.40 K/uL 08/16/2025 11:52 AM [facility] MONOCYTE ABSOLUTE 0.64(H) 0.24 - 0.36 K/uL 08/16/2025 11:52 AM [facility] EOSINOPHIL ABSOLUTE 0.15 0.04 - 0.36 K/uL 08/16/2025 11:52 AM [facility] BASOPHILS ABSOLUTE 0.06 0.01 - 0.08 K/uL 08/16/2025 11:52 AM [facility] IMMATURE GRANULOCYTES ABSOLUTE 0.10 K/uL 08/16/2025 11:52 AM [facility] Blood BLOOD SPECIMEN / Unknown Collection / Unknown 08/16/2025 11:39 AM CDT 08/16/2025 11:49 AM CDT Yifan Scanlon MD HEMATOLOGY ORDERABLES Karena diggs Result [facility] CLIA # [id number] [address] [place] [address] * (ABNORMAL) HCG QUALITATIVE, URINE (08/16/2025 11:12 AM CDT) HCG QUAL URINE Negative Negative 08/16/2025 11:37 AM CDT [facility] COLOR UA Yellow Pale to Dark Yellow 08/16/2025 11:37 AM CDT [facility] CLARITY UA Slightly Cloudy(A) Clear 08/16/2025 11:37 AM CDT [facility] Urine URINE SPECIMEN OBTAINED BY CLEAN CATCH PROCEDURE / Unknown Collection / Unknown 08/16/2025 11:12 AM CDT 08/16/2025 11:19 AM CDT us Yifan Scanlon MD URINE ORDERABLES Final Res ult [facility] CLIA # [id number] [address] [place] [id number] * (ABNORMAL) URINALYSIS MICROSCOPY ONLY (08/16/2025 11:12 AM CDT) WBC UA 0-2 0 - 2 /hpf 08/16/2025 11:31 AM CDT [facility] RBC UA 0-2 0 - 2 /hpf 08/16/2025 11:31 AM CDT [facility] BACTERIA UA 1+(A) Negative /hpf 08/16/2025 11:31 AM CDT [facility] Comment:Mucus observed. EPITHELIAL CELLS, URINE 09-16(A) 0 - 5 /hpf 08/16/2025 11:31 AM CDT [facility] Comment:Sample unsuitable fo r culture. Urine URINE SPECIMEN OBTAINED BY CLEAN CATCH PROCEDURE / Unknown Collection / Unknown 08/16/2025 11:12 AM CDT 08/16/2025 11:19 AM CDT us Yifan Scanlon MD URINE ORDERABLES Final Res ult [facility] CLIA # [id number] [address] [place] [address] * (ABNORMAL) URINALYSIS WITH REFLEX MICROSCOPIC (08/16/2025 11:12 AM CDT) COLOR UA Yellow Pale to Dark Yellow 08/16/2025 11:26 AM T [facility] CLARITY UA Slightly Cloudy(A) Clear 08/16/2025 11:26 AM T [facility] SPECIFIC GRAVITY UA >=1.030 1.003 - 1.035 08/16/2025 11:26 AM T [facility] PH UA 7.0 5.0 - 8.0 08/16/2025 11:26 AM [facility] LEUKOCYTE ESTERASE UA Negative Negative 08/16/2025 11:26 AM T [facility] NITRITE UA Negative Negative 08/16/2025 11:26 AM [facility] PROTEIN UA 1+(A) Negative 08/16/2025 11:26 AM T [facility] GLUCOSE UA Negative Negative 08/16/2025 11:26 AM [facility] KETONES UA Negative Negative 08/16/2025 11:26 AM [facility] UROBILINOGEN UA 1.0 <2.0 mg/dL 11:26 AM [facility] BILIRUBIN UA Negative Negative 08/16/2025 11:26 AM [facility] BLOOD UA Trace(A) Negative 08/16/2025 11:26 AM [facility] Urine URINE SPECIMEN OBTAINED BY CLEAN CATCH PROCEDURE / Unknown Collection / Unknown 08/16/2025 11:12 AM CDT 08/16/2025 11:19 AM CDT Yifan Scanlon MD URINE ORDERABLES Final Res ult [facility] CLIA # [id number] [address] [place] [id number] documented in this encounter Visit Diagnoses Diagnosis Pelvic pain in female- Primary Unspecified symptom associated with female genital organs documented in this encounter Administered Medications Inactive Administered Medications - up to 3 most recent administrations Medication Order MAR Action Action Date Dose Rate Site acetaminophen (TYLENOL) tablet 1,000 mg 1,000 mg, Oral, ONE TIME ONLY, 1 dose, On 08/16/25 at 1130, Routine Given 08/16/2025 11:39 AM CDT 1,000 mg sodium chloride 0.9 % bolus solution 1,000 mL 1,000 mL, IV, ONE TIME ONLY, 1 dose, On 08/16/25 at 1130, at 999 mL/hr, Administer over 60 Minutes, Routine New Bag 08/16/2025 11:42 AM CDT 1,000 mL 999 mL/hr documented in this encounter Active and Recently Administered Medications Times are shown in CDT. Scheduled Medication Order 08/14/2025 08/15/2025 08/16/2025 acetaminophen (TYLENOL) tablet 1,000 mg (COMPLETED) 1,000 mg, Oral, ONE TIME ONLY, 1 dose, On 08/16/25 at 1130, Routine 1139 (Given - Provid er: Nova Streeter RN) ketorolac (TORADOL) injection 30 mg 30 mg, IV, ONE TIME ONLY, 1 dose, On 08/16/25 at 1130, Routine 1142 (Refused - Prov ider: Nova Streeter RN) sodium chloride 0.9 % bolus solution 1,000 mL 1,000 mL, IV, ONE TIME ONLY, 1 dose, On 08/16/25 at 1130, at 999 mL/hr, Administer over 60 Minutes, Routine 1142 (New Bag - Prov ider: Nova Streeter RN)1149 (Stopped - Provider: Nova Streeter RN)1242 (Due: Stopped - Provider: Nova Streeter RN) documented in this encounter Additional Health Concerns Assessment Noted Time PHQ-9 Depression Total Score: 1 06/03/20 24 1:44 PM CDT documented as of this encounter Care Teams Senior Rd Engineer Relationship Specialty Start Date End Date Gracia Ralph DO [address] [place] [address] PCP - General Family Practice 06/03/24 documented as of this encounter
--- OUTSIDE RECORDS SUMMARY | 2025-08-16 12:36 | XMS_ITS | Encounter Summary ---
Author Organization [facility] Address [address] [place] [id number] Phone Care Team Providers Care Structural Steel Worker Apprentice Name Role Phone Rakesh Darden MD Primary Care Provider [phone] Encounter Details Date Type Department Care Team (Late st Contact Info) Description 09/04/2023 Telephone [facility] [address] [place], [place] [id number] Gladis Phan, STRENGTH AND CONDITIONING COACH [address] [place], [place] [id number] Social History Tobacco Use Types Packs/Day Years [...] or ex-partner? No 02/19/2021 Social Connection and Isolation Panel Answer Date Recorded In a typical week, how many times do you talk on the phone with family, friends, or neighbors? More than three times a week 02/19/2021 How often do you get togethe r with friends or relatives? More than three times a week 02/19/2021 How often do you attend chur ch or jew services? Never 02/19/2021 Do you belong to any clubs o r organizations such as restorationism groups, unions, fraternal or athletic groups, or [...] Recorded Patient Health Questionnaire-2 Score 0 09/05/2023 [facility] - Occupational Stress [...] as of this encounter Functional Status * AUDIT-C Score Answer Date of Assessment Author 1 [...] encounter Miscellaneous Notes * Telephone Encounter - Beatriz Olivarezler - 09/04/2023 10:25 AM CST Patient notified verbalized understanding. Asked to change the appointment scheduled to a regular check up appointment as she has some other concerns she would like to discuss. PREVENTION OPERATIONS MANAGER * Telephone Encounter - CHELO Nichole - 09/04/2023 9:01 AM CST She has not read the message yet on [employer], please CALL her and let her know the following: Due to her breast pain and post breast reduction she will need to call her surgeon who did the breast reduction and inform them of what is going on. I will not be able to see her for that PREVENTION OPERATIONS MANAGER documented in this encounter Plan of Treatment Not on file documented as of this encounter Visit Diagnoses Not on filedocumented in this encounter Care Teams Structural Steel Worker Apprentice Relationship Specialty Start Date End Date Rakesh Darden MD PCP - General Family Medicine 03/05/21 documented as of this encounter
--- OUTSIDE RECORDS SUMMARY | 2025-08-16 12:36 | XMS_ITS | Encounter Summary ---
Author Organization [facility] Address [address] [place]: Epic Prelude ADT [place] [address] Care Team Providers Care Upholsterer Inside Name Role Phone Gracia Ralph DO Primary Care Provider [phone] Encounter Details Date Type Department Care Team (Latest Contact Info) Description 08/16/2025 Travel Social History Tobacco Use Types Packs/Day Years [...] worry about transportation for future doctor visits, seed cone picker medication, etc.? 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 Gender Identity Female 05/16/2024 11:40 AM CDT Sexual Orientation Not on file Occupation Industry Job Start Date Job End Date unemployed Not on file Not on file Not on file documented as of this encounter Plan of Treatment Upcoming Encounters Date Type Department Care Team (Late st Contact Info) Description 08/20/2025 9:45 AM CDT Office Visit [facility] Todd Bautista [place] [address] [place] [address] Arnol Brunson DO [address] [place] [address] documented as of this encounter Visit Diagnoses Not on filedocumented in this encounter Additional Health Concerns Assessment Noted Time PHQ-9 Depression Total Score: 1 06/03/20 24 1:44 PM CDT documented as of this encounter Care Teams Upholsterer Inside Relationship Specialty Start Date End Date Gracia Ralph DO [address] [place] [address] PCP - General Family Practice 06/03/24 documented as of this encounter
--- OUTSIDE RECORDS SUMMARY | 2025-08-16 12:36 | XMS_ITS | Clinical Summary ---
Author Organization [facility] Address [address] [place] [address] Phone Care Team Providers Care Account Liaison Hospice Name Role Phone Rakesh Darden MD Primary Care Provider [phone] Allergies Active Allergy Reactions Criticality Noted Date [...] week 02/19/2021 How often do you attend [facility] or lutheran services? Never 02/19/2021 Do you belong to any clubs o r organizations such as sabianist groups, unions, fraternal or athletic groups, or [...] Recorded Patient Health Questionnaire-2 Score 0 12/21/2023 [facility] - Occupational [...] things needed for daily living? No 02/19/2021 [facility] - Mental Health Answer Date Recorde d [...] Comments Blood Pressure 133/81 12/21/2023 11:08 AM ELECTRONICS COMPUTER MECHANIC Pulse 78 12/21/2023 11:08 AM ELECTRONICS COMPUTER MECHANIC Temperature 36.5 C (97.7 F) 12/21/2023 11:08 AM ELECTRONICS COMPUTER MECHANIC Respiratory Rate 16 03/29/2022 10:36 AM CDT Oxygen Saturation 97% 12/21/2023 11:08 AM ELECTRONICS COMPUTER MECHANIC Inhaled Oxygen Concentration - - Weight 80.1 kg (176 lb 9.6 oz) 12/21/2023 11:08 AM ELECTRONICS COMPUTER MECHANIC Height 167.6 cm (5' 6 ) 12/21/2023 11:08 AM ELECTRONICS COMPUTER MECHANIC Body Mass Index 28.5 12/21/2023 11:08 AM ELECTRONICS COMPUTER MECHANIC Plan of Treatment Health Maintenance Due Date [...] 2 - PCV) 2018 Pap Smear 2020 Creatinine Level 09/05/2024 09/05/2023 Potassium Level 09/05/2024 09/05/2023 COVID-19 Vaccine ( - season) 2025 Influenza Vaccine (#1) 2025 9, 09/15/2008, 09/06/2007, [...] COMPREHENSIVE METABOLIC PANEL Routine 09/05/2023 1:49 PM ELECTRONICS COMPUTER MECHANIC Dizziness Hair loss from Last 3 Months or Most Recently Relevant to Health Maintenance Results * Comprehensive Metabolic Panel (09/05/2023 1:49 PM ELECTRONICS COMPUTER MECHANIC) GLUCOSE 82 65 - 99 mg/dL [facility] [...] blood specimen / Unknown 09/05/2023 1:49 PM ELECTRONICS COMPUTER MECHANIC 09/06/2023 10:10 AM ELECTRONICS COMPUTER MECHANIC Narrative Resulting Agency Comment Performing Organization Information: Site ID: [place] Name: [facility] Address: [address] [place] [address] Director: Long Denise MD us Rakesh Darden MD LAB BLOOD ORDERABLES Final Resul t [facility] RIA [id number] [place] [id number] from Last 3 Months or Most Recently Relevant to Health Maintenance [place] [address] [place] [address] MEDICAID REPLACEMENT Care Teams Account Liaison Hospice Relationship Specialty Start Date End Date Rakesh Darden MD PCP - General Family Medicine 03/05/21
--- OUTSIDE RECORDS SUMMARY | 2025-08-16 12:36 | XMS_ITS | Encounter Summary ---
Author Organization [facility] Address [address] [place] [address] Care Team Providers Care Bait Man Name Role Phone Gracia Ralph Primary Care Provider [phone] Reason for Visit * Reason Onset Date Comments control/JAM 05/19/2025 Encounter Details Date Type Department Care Team (Late st Contact Info) Description 05/19/2025 Telephone [facility] Todd Bautista [place] [address] [place] [address] Gene Krishnamurthy DO [address] [place] [address] control/JAM Social History Tobacco Use Types Packs/Day Years Used Date Smoking Tobacco: Every Day Cigarettes Passive Smoke Exposure: Yes Smokeless Tobacco: Never Alcohol Use Standard Drinks/Week Comments No 0 (1 standard drink = 0.6 oz pur e alcohol) Feeling Safe Answer Date Recorded Are you in a relationship wi th someone who hurts you emotionally and/or physically? 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 Gender Identity Female 05/16/2024 11:40 AM CDT [...] regarding control concerns Pt call back number [phone] documented in this encounter Plan of Treatment Upcoming Encounters Date Type Department Care Team (Late st Contact Info) Description 08/20/2025 9:45 AM CDT Office Visit [facility] Todd Bautista [place] [address] [place] [address] Arnol Brunson DO [address] [place] [address] documented as of this encounter Visit Diagnoses Not on filedocumented in this encounter Additional Health Concerns Assessment Noted Time PHQ-9 Depression Total Score: 1 06/03/20 24 1:44 PM CDT documented as of this encounter Care Teams Bait Man Relationship Specialty Start Date End Date Gracia Ralph DO [address] [place] [address] PCP - General Family Practice 06/03/24 documented as of this encounter
--- OUTSIDE RECORDS SUMMARY | 2025-08-16 12:36 | XMS_ITS | Encounter Summary ---
Author Organization [facility] Address [address] [place] [address] Care Team Providers Care Checking Clerk Name Role Phone Gracia Ralph Primary Care Provider [phone] Encounter Details Date Type Department Care Team (Late st Contact Info) Description 06/17/2024 Lab Requisition [facility] General Lab [facility] [address] [place] [address] Reilly Walker MD [address] [place], [place] [id number] Encounter for test, result positive Social History Tobacco Use Types Packs/Day Years Used Date Smoking Tobacco: Every Day Passive Smoke Exposure: Yes Smokeless Tobacco: Never Alcohol Use Standard Drinks/Week Comments No 0 (1 standard drink = 0.6 oz pur e alcohol) Feeling Safe Answer Date Recorded Are you in a relationship wi th someone who hurts you emotionally and/or physically? 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 Gender Identity Female 05/16/2024 11:40 AM CDT Sexual Orientation Not on file documented as of this encounter Plan of Treatment Upcoming Encounters Date Type Department Care Team (Late st Contact Info) Description 08/20/2025 9:45 AM CDT Office Visit [facility] Todd Bautista [place] [address] [place] [address] Arnol Brunson DO [address] [place] [address] documented as of this encounter Procedures Procedure Name Priority Date/Time Associated Diagnosis Comments HCG QUANTITATIVE, BLOOD Stat 06/17/2024 8:53 AM CDT Encounter for test, result positive documented in this encounter Results * (ABNORMAL) HCG QUANTITATIVE, BLOOD (06/17/2024 8:53 AM CDT) HCG QUANT, BLOOD 498.0(H) <5.0 mIU/mL 06/17/2024 9:35 AM CDT [facility] Mailbox [facility] Comment: HCG Quantitative Reference Range Male <= [...] 8:53 AM CDT 06/17/2024 8:53 AM CDT Reilly Walker MD CHEMISTRY ORDERABLES Final Res ult [facility] Mailbox [facility] CLIA# [id number] [address] [place] [address] documented in this encounter Visit Diagnoses Diagnosis Encounter for test, result positive examination or test, positive result documented in this encounter Additional Health Concerns Infection Onset Date Last Indicated Resolved Time R/O GI Pathogen 07/13/2024 07/12/2024 07/13/2024 4 :06 PM CDT R/O C. diff 07/25/2024 07/25/2024 07/26/2024 11:5 3 AM CDT R/O COVID-19 11/19/2024 11/19/2024 11/19/2024 8:59 PM SENIOR DATA SCIENTIST Assessment Noted Time PHQ-9 Depression Total Score: 1 06/03/20 1:44 PM CDT documented as of this encounter Care Teams Checking Clerk Relationship Specialty Start Date End Date Gracia Ralph DO [address] [facility] [address] [place] [address] PCP - General Family Practice 06/03/24 documented as of this encounter
--- OUTSIDE RECORDS SUMMARY | 2025-08-16 12:36 | XMS_ITS | Encounter Summary ---
Author Organization [facility] Address [address] [address] Phone Care Team Providers Care Shaker Screen Operator Name Role Phone Rakesh Darden MD Primary Care Provider [phone] Encounter Details Date Type Department Care Team (Late st Contact Info) Description 05/28/2021 Orders Only [facility] [address] [place] [address] Mary Estevez [address] [id number] Social History Tobacco Use Types Packs/Day Years [...] often do you attend chur ch or yazidi services? Never 02/19/2021 Do you belong to any clubs o r organizations such as jehovah's witness groups, unions, fraternal or athletic groups, or [...] Recorded Patient Health Questionnaire-2 Score 2 03/05/2021 [facility] - Occupational [...] on filedocumented in this encounter Care Teams Shaker Screen Operator Relationship Specialty Start Date End Date Rakesh Darden MD PCP - General Family Medicine 03/05/21 documented as of this encounter
--- OUTSIDE RECORDS SUMMARY | 2025-08-16 12:36 | XMS_ITS | Clinical Summary ---
Author Organization [facility] Address [address] 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 Diagnoses: Severe Hyperemesis this with 3 hospital [...] Encounters Date Type Department Care Team Description 08/16/2025 10:39 AM CDT - 08/16/2025 11:49 AM CDT [facility] Emergency Medicine [address] [place] [phone] Yifan Scanlon MD Pelvic pain in female (Primary Dx) Discharge Disposition: Left Against Medical Advice 08/16/2025 Travel 07/01/2025 External Device Data STL ABSTRACTION Provider, Abstract 07/01/2025 External Device Data STL ABSTRACTION Provider, Abstract 07/01/2025 External Device Data STL ABSTRACTION Provider, Abstract 06/29/2025 8:14 AM CDT - 06/29/2025 8:29 AM CDT [facility] Emergency Department [address] [place] [phone] Discharge Disposition: Left Against Medical Advice 06/29/2025 Travel 06/18/2025 1:40 PM CDT [facility] [address] [place] [address] Gene Krishnamurthy DO Menorrhagia with irregular cycle (Primary Dx); Endometriosis; Nexplanon removal; Encounter for IUD insertion; Encounter for counseling regarding contraception 06/11/2025 External Device Data STL ABSTRACTION Provider, Abstract 05/28/2025 External Device Data STL ABSTRACTION Provider, Abstract 05/19/2025 [facility] [address] [place] [address] Susu Stephenson NP Breakthrough bleeding with IUD (Primary Dx) 05/19/2025 [facility]phone [facility] [place]dock [address] [place] [phone] Gene Krishnamurthy, control/JAM from Last 3 Months Immunizations Immunization Administration [...] from dr purdy overdose Depression Mother Roro Mcclelland Endometriosis Mother Roro Mcclelland Healthy Mother Roro Mcclelland Mental illness Mother Roro Mcclelland Multiple Sclerosis Mother Roro Mcclelland Other Mother Roro Mcclelland from dr purdy overdose Breast Cancer Other great mat. grandmother Angioedema Sister Colon Cancer Neg Hx Relation Name Status Comments Father Timo Obando Mother Roro Mcclelland Other great mat. grandmother Alive Sister Alive [...] worry about transportation for future doctor visits, mixing picker tender medication, etc.? 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 Gender Identity Female 05/16/2024 11:40 AM CDT [...] Mass Index 30.51 08/16/2025 10:44 AM CDT Plan of Treatment Upcoming Encounters Date Type Department Care Team (Late st Contact Info) Description 08/20/2025 9:45 AM CDT Office Visit [facility] Todd Bautista Murdock [address] [place] [address] Arnol Brunson, DO [address] [place] [phone] Health Maintenance Due Date Last Done Comments HPV VACCINES (1 - 3-dose series) 2014 CERVICAL CANCER SCREENING 2020 HPV/Cotest (21-29) 2020 PAP SMEAR 2020 INFLUENZA VACCINE (#1) 2025 9, 09/15/2008, 09/06/2007, Additional history exists COVID-19 Vaccine (3 - 2024-2 6 season) 2025 12/07/2021, 11/16/2021 DTAP/TDAP/TD VACCINES (7 - T d or Tdap) 12/05/2034 12/05/2024, 01/25/2005, 08/30/2001, Additional history exists HEPATITIS B VACCINES Completed 08/21/2000, 08/21/2000, 04/05/2000, Additional history exists CHLAMYDIA SCREENING (ANNUAL) 11-24 YEARS Discontinued 06/23/2024, 02/21/2019 Procedures Procedure Name Priority Date/Time Associated Diagnosis Comments BASIC METABOLIC PANEL Stat 08/16/2025 11:39 AM CDT CBC WITH DIFFERENTIAL Stat 08/16/2025 11:39 AM CDT HCG QUALITATIVE, URINE Stat 08/16/2025 11:12 AM CDT URINALYSIS MICROSCOPY ONLY Stat 08/16/2025 11:12 AM CDT URINALYSIS W/REFLEX MICROSCOPIC Stat 08/16/2025 11:12 AM CDT NC INSERTION INTRAUTERINE DEVICE IUD Routine 06/18/2025 1:40 PM CDT Encounter for IUD insertion NC REMOVAL NON-BIODEGRADABLE DRUG DELIVERY IMPLANT Routine 06/18/2025 1:40 PM CDT Nexplanon removal GC/CHLAMYDIA, UROGENITAL Stat 06/23/2024 9:27 AM CDT from Last 3 Months or Most Recently Relevant to Health Maintenance Results * (ABNORMAL) CBC WITH DIFFERENTIAL (08/16/2025 11:39 AM CDT) WBC 10.3(H) 4.0 - 10.0 K/uL 08/16/2025 11:52 AM [facility] RBC 4.24 3.93 - 5.22 M/uL 08/16/2025 11:52 AM [facility] HEMOGLOBIN 11.4 11.2 - 15.7 g/dL 08/16/2025 11:52 AM [facility] HEMATOCRIT 34.5 34.1 - 44.9 % 08/16/2025 11:52 AM [facility] MCV 81.4 79.4 - 94.8 fL 08/16/2025 11:52 AM [facility] MCH 26.9 25.6 - 32.2 pg 08/16/2025 11:52 AM [facility] MCHC 33.0 32.2 - 35.5 g/dL 08/16/2025 11:52 AM [facility] RDW 14.6(H) 11.0 - 14.5 % 08/16/2025 11:52 AM [facility] RDW-STDEV 42.6 36.9 - 56.9 fL 08/16/2025 11:52 AM [facility] PLATELETS 383(H) 163 - 337 K/uL 08/16/2025 11:52 AM [facility] MPV 8.8(L) 10.0 - 14.8 fL 08/16/2025 11:52 AM [facility] NEUTROPHILS 77(H) 34 - 71 % 08/16/2025 11:52 AM [facility] LYMPHOCYTES 13(L) 19 - 52 % 08/16/2025 11:52 AM [facility] MONOCYTES 6 5 - 13 % 08/16/2025 11:52 AM [facility] EOSINOPHILS 2 1 - 6 % 08/16/2025 11:52 AM CDT [facility] BASOPHILS 1 0 - 1 % 08/16/2025 11:52 AM [facility] IMMATURE GRANULOCYTES 1 % 08/16/2025 11:52 AM [facility] NEUTROPHIL ABSOLUTE 7.95(H) 1.56 - 6.13 K/uL 08/16/2025 11:52 AM [facility] LYMPHOCYTE ABSOLUTE 1.36 1.20 - 3.40 K/uL 08/16/2025 11:52 AM T [facility] MONOCYTE ABSOLUTE 0.64(H) 0.24 - 0.36 K/uL 08/16/2025 11:52 AM [facility] EOSINOPHIL ABSOLUTE 0.15 0.04 - 0.36 K/uL 08/16/2025 11:52 AM [facility] BASOPHILS ABSOLUTE 0.06 0.01 - 0.08 K/uL 08/16/2025 11:52 AM [facility] IMMATURE GRANULOCYTES ABSOLUTE 0.10 K/uL 08/16/2025 11:52 AM [facility] Blood BLOOD SPECIMEN / Unknown Collection / Unknown 08/16/2025 11:39 AM CDT 08/16/2025 11:49 AM CDT Yifan Scanlon MD HEMATOLOGY ORDERABLES Karena diggs Result [facility] # [id number] [address] [place] [address] * BASIC METABOLIC PANEL (08/16/2025 11:39 AM CDT) SODIUM 137 136 - 145 mmol/L 08/16/2025 12:03 PM [facility] POTASSIUM 3.9 3.5 - 5.1 mmol/L 08/16/2025 12:03 PM [facility] CHLORIDE 105 98 - 107 mmol/L 08/16/2025 12:03 PM [facility] CO2 23 22 - 29 mmol/L 08/16/2025 12:03 PM T [facility] CALCIUM 9.1 8.6 - 10.0 mg/dL 08/16/2025 12:03 PM [facility] BUN 8 6 - 20 mg/dL 08/16/2025 12:03 PM [facility] CREATININE 0.58 0.51 - 0.95 mg/dL 08/16/2025 12:03 PM [facility] GLUCOSE 88 74 - 99 mg/dL 08/16/2025 12:03 PM [facility] GFR >60 >=60 mL/min/1.7 3 sq meter 08/16/2025 12:03 PM [facility] Comment:eGFR calculated with 2020 CKD-EPI equation. Vegetarian diet, extremely high or low muscle mass, and may affect results. Cystatin C with Glomerular Filtration Rate is a suitable alternative for these patients. ANION GAP 9 5 - 20 mmol/L 08/16/2025 12:03 PM [facility] Blood BLOOD SPECIMEN / Unknown Collection / Unknown 08/16/2025 11:39 AM CDT 08/16/2025 11:49 AM CDT Yifan Scanlon MD CHEMISTRY ORDERABLES Final Result [id number] [address] [place] [address] * (ABNORMAL) URINALYSIS MICROSCOPY ONLY (08/16/2025 11:12 AM CDT) WBC UA 0-2 0 - 2 /hpf 08/16/2025 11:31 AM [facility] RBC UA 0-2 0 - 2 /hpf 08/16/2025 11:31 AM [facility] BACTERIA UA 1+(A) Negative /hpf 08/16/2025 11:31 AM [facility] Comment:Mucus observed. EPITHELIAL CELLS, URINE 11-25(A) 0 - 5 /hpf 08/16/2025 11:31 AM [facility] Comment:Sample unsuitable fo r culture. Urine URINE SPECIMEN OBTAINED BY CLEAN CATCH PROCEDURE / Unknown Collection / Unknown 08/16/2025 11:12 AM CDT 08/16/2025 11:19 AM CDT us Yifan Scanlon MD URINE ORDERABLES Final Res ult [facility] CLIA # [id number] [address] [place] [address] * (ABNORMAL) URINALYSIS WITH REFLEX MICROSCOPIC (08/16/2025 11:12 AM CDT) COLOR UA Yellow Pale to Dark Yellow 08/16/2025 11:26 AM [facility] CLARITY UA Slightly Cloudy(A) Clear 08/16/2025 11:26 AM [facility] SPECIFIC GRAVITY UA >=1.030 1.003 - 1.035 08/16/2025 11:26 AM [facility] PH UA 7.0 5.0 - 8.0 08/16/2025 11:26 AM [facility] LEUKOCYTE ESTERASE UA Negative Negative 08/16/2025 11:26 AM [facility] NITRITE UA Negative Negative 08/16/2025 11:26 AM [facility] PROTEIN UA 1+(A) Negative 08/16/2025 11:26 AM [facility] GLUCOSE UA Negative Negative 08/16/2025 11:26 AM [facility] KETONES UA Negative Negative 08/16/2025 11:26 AM [facility] UROBILINOGEN UA 1.0 <2.0 mg/dL 11:26 AM [facility] BILIRUBIN UA Negative Negative 08/16/2025 11:26 AM [facility] BLOOD UA Trace(A) Negative 08/16/2025 11:26 AM [facility] Urine URINE SPECIMEN OBTAINED BY CLEAN CATCH PROCEDURE / Unknown Collection / Unknown 08/16/2025 11:12 AM CDT 08/16/2025 11:19 AM CDT Yifan Scanlon MD URINE ORDERABLES Final Res ult Performing Organization Address [facility] de Phone Number [facility] CLIA # [id number] [address] [place] [address] * (ABNORMAL) HCG QUALITATIVE, URINE (08/16/2025 11:12 AM CDT) HCG QUAL URINE Negative Negative 08/16/2025 11:37 AM CDT [facility] COLOR UA Yellow Pale to Dark Yellow 08/16/2025 11:37 AM CDT [facility] CLARITY UA Slightly Cloudy(A) Clear 08/16/2025 11:37 AM CDT [facility] Urine URINE SPECIMEN OBTAINED BY CLEAN CATCH PROCEDURE / Unknown Collection / Unknown 08/16/2025 11:12 AM CDT 08/16/2025 11:19 AM CDT Yifan Scanlon MD URINE ORDERABLES Final Res ult Performing Organization Address [facility] Co de Phone Number [facility] [id number] [address] [place] [address] * [place] INSERTION INTRAUTERINE DEVICE IUD (06/18/2025 1:40 PM CDT) Narrative [facility] COLEEN BAUTISTA KUSH - 06/18/2025 1:40 PM CDT Gene Krishnamurthy DO 06/18/2025 3:51 PM IUD Insertion Date/Time: 06/18/2025 1:40 PM Performed by: Gene Krishnamurthy DO Authorized by: Gene Krishnamurthy DO Consent: Consent obtained: Written Procedure: Pelvic exam performed: yes Cervix cleaned and prepped: yes Speculum placed in vagina: yes Uterus sounded: yes Uterus sound depth (cm): 8 IUD type: Mirena Strings trimmed: yes Comments: Patient presents for IUD insertion. Risks, benefits, and alternatives had previously been discussed with patient and again reviewed today. Patient desires to proceed with IUD insertion. Informed consent obtained. The patient was placed in the dorsal lithotomy position with her legs in stirrups. A speculum was inserted and the cervix was visualized. No lesions, masses, or cervical discharge noted. The cervix was cleansed with Betadine x3. The IUD was then inserted without difficulty to the uterine fundus and subsequently deployed. The paper inserter was removed and strings were cut. The tenaculum was removed. The speculum was then removed. The patient tolerated the procedure well. Gene Krishnamurthy DO PROCEDURE/MINOR SURGICAL ORD ERABLES Final Result Performing Organization Address [facility] Co de Phone Number [facility] COLEEN CAO CLIA# [id number] [address] [address] * [place] REMOVAL NON-BIODEGRADABLE DRUG DELIVERY IMPLANT (06/18/2025 1:40 PM CDT) Narrative [facility] COLEEN CAO - 06/18/2025 1:40 PM CDT Gene Krishnamurthy DO 06/18/2025 3:51 PM Progestin Implant Date/Time: 06/18/2025 1:40 PM Performed by: Gene Krishnamurthy DO Authorized by: Gene Krishnamurthy DO Consent: Consent obtained: Written Consent given by: Patient Procedural risks discussed: Bleeding Indication: Indication: Presence of non-biodegradable drug delivery implant Procedure: Procedure: Removal Left/right: Left Comments: The patient was placed in the supine position. The lincoln was located by palpation in the left. The area is cleaned with Betadine. Lidocaine was injected just underneath the end of the implant closest to the elbow. After firmly pressing down on the end of the implant closer to the axilla an 2-3 mm incision is made with a scalpel. The lincoln is pushed to the incision site and grasped with a mosquito forceps and gently removed. The patient tolerated the procedure well. The lincoln was removed in its entirety. The incision was dressed with a small adhesive bandage closure and a pressure dressing was applied. Gene Krishnamurthy DO PROCEDURE/MINOR SURGICAL ORD ERABLES Final Result Performing Organization Address [facility]/ZIP Co de Phone Number [facility] COLEEN CAO CLIA# [id number] [address] [place] [address] * GC/CHLAMYDIA, UROGENITAL (06/23/2024 9:27 AM CDT) CHLAMYDIA DNA AMPLIFICATION NOT DETECTED Not Detected 06/23/2024 5:41 PM CDT [facility] GC DNA AMPLIFICATION NOT DETECTED Not Detected 06/23/2024 5:41 PM CDT [facility] Genital Collection / Unknown 06/23/2024 9:27 AM CDT 06/23/2024 9:31 AM CDT Narrative [facility] - 06/23/2024 5:41 PM CDT Results should not be used for the evaluation of suspected sexual abuse or for other medico-legal indications. The only legally accepted results are from culture. Results cannot be used to assess therapeutic success or failure since nucleic acids may persist following antimicrobial therapy. Jennifer Bartholomew MD MICROBIOLOGY - GENERAL ORD ERABLES Final Result [facility] CLIA# [id number] [address] [place] [address] from Last 3 Months or Most Recently Relevant to Health Maintenance Insurance [facility] MEDICAID BCBS [place] MEDICAID RX INFOCROSSING Medicaid Advance Directives For more information, please contact: [phone] * Full Code (Latest Code Status on [...] 5:26 PM 01/15/2025 11:11 PM Care Teams Msws Relationship Specialty Start Date End Date Gracia Ralph DO [address] [place] [phone] PCP - General Family Practice 06/03/24
--- OUTSIDE RECORDS SUMMARY | 2025-08-16 12:36 | XMS_ITS | Encounter Summary ---
Author Organization [facility] Address [address] [place] [address] Phone Care Team Providers Care Observation Assistant Name Role Phone Rakesh Darden MD Primary Care Provider [phone] Reason for Visit * Reason Comments Med Refill Encounter Details Date Type Department Care Team (Late st Contact Info) Description 01/19/2022 Refill [facility] [address] [place], [place] [address] Rakesh Darden MD [address] [place] [phone] Migraine without aura and without status migrainosus, [...] any clubs o r organizations such as anglican groups, unions, fraternal or athletic groups, or [...] Recorded Patient Health Questionnaire-2 Score 2 03/05/2021 [facility] - [facility]ational Stress Questionnaire Answer Date Recorded [...] intractable documented in this encounter Care Teams Observation Assistant Relationship Specialty Start Date End Date Rakesh Darden MD PCP - General Family Medicine 03/05/21 documented as of this encounter
[2025-08-16 12:38] VITALS: BP 127/88; PULSE 72; RESP 18; TEMP 36.6; O2SAT 99; BMI 30.4
--- NOTE | 2025-08-16 13:06 | W.ED.FEMALGU ---
HPI - Female Genitourinary General: Chief complaint: Urogenital-Female Stated complaint: vaginal pain after sex Time Seen by Provider: 08/16/25 12:44 History of Present Illness: Patient is a 24-year-old female 1 para 1, IUD for control that presents to the emergency room with dyspareunia. This occurred just prior to arrival. She has a history endometriosis. She gave 6 months ago. No issues until today. No drainage. No dysuria. No flank pain. Selected Entries 08/16/25 12:38 ED Triage Comment PT PRESENTS WITH V AGINAL PAIN AFTER INTERCOURSE. MANISHA NT STATES HAS SEX THIS MORNING AND I S HAVING VAGINAL P AIN AND LOWER ABDO JANNIE PAIN SINCE. PATIENT WAS JUST S EEN AT [facility] WHERE SHE WAS GIVEN TYLENOL AND TOLD I WAS CRAMP ING. PATIENT HAS 6 MO OLD CHILD WIT H HER. PATIENT DEN IES BLEEDING. NEIL ENT HAD IUD PLACED IN MAY. PATENT AIRWAY, UNLABORED RESPIRATIONS, AND APPROPRIATE COLOR . Associated symptoms: Deny abdominal pain, headache(s), nausea or vaginal discharge Related Data Home Medications ?Medication ?Instructions ?Recorded ?Confirmed buspirone 15 mg tablet 15 mg PO TID 10/29/21 11/19/24 dextroamphetamine-amphetamine 15 15 mg PO BID 10/29/21 11/19/24 mg tablet (Adderall) Previous Rx's ?Medication ?Instructions ?Recorded doxycycline hyclate 100 mg capsule 100 mg PO BID 10 days #20 caps 08/16/25 metronidazole 500 mg tablet 500 mg PO BID 7 days #14 tabs 08/16/25 Allergies Allergy/AdvReac Type Severity Reaction Status Date / Time ketorolac (From Toradol) Allergy ALGY-Hives Verified 08/16/25 13:18 metoclopramide (From Reglan) Allergy Unknown Verified 11/19/24 15:47 morphine Allergy rash Verified 11/19/24 15:47 Review of Systems Const: Denies: fever(s), chills, body aches or change in appetite ENMT: Denies: throat pain or dental pain Card: Denies: chest pain or palpitations Resp: Denies: dyspnea or non-productive cough GI: Denies: abdominal pain, nausea, vomiting or diarrhea : Reports: dyspareunia; Denies: flank pain, difficulty voiding, dysuria, vaginal odor or vaginal discharge Musc: Denies: neck pain or back pain Skin/Breast: Denies: rash or pruritus Neuro: Denies: headache(s) PFSH ED PFSH: Medical History (Updated 08/16/25 @ 15:14 by ODELL Carter) Encounter for incision and drainage procedure Abscess of lip No significant past medical history Surgical History No pertinent past surgical history Social History Smoking and tobacco/nicotine status: unknown if used tobacco/nicotine Physical Exam Const: COMMON NORMALS: no acute distress, average body habitus, patient oriented x3, no limitations, healthy appearing, alert and well nourished HENMT: COMMON NORMALS: normocephalic, atraumatic, hearing grossly normal bilaterally, external ears normal, EAC's normal, Normal external nose present, Normal nasal mucous membranes and turbinates present, moist oral mucous membranes, oropharynx normal, dentition normal and gingiva normal HEAD & SCALP: normocephalic and atraumatic NOSE: Normal external nose present and Normal nasal mucous membranes and turbinates present EXTERNAL EAR: Yes external ears normal EXTERNAL AUDITORY CANAL: EAC's normal Lymph: LYMPHATIC: no lymphadenopathy noted Chest: COMMONS NORMALS: normal inspection of the chest, normal palpation of entire chest wall, normal inspection of the breasts and normal palpation of the breasts Breast/axilla inspection: Yes normal inspection of the breasts BREAST/AXILLA PALPATION: Yes normal palpation of the breasts Resp: COMMON NORMALS: normal respiratory effort, No retractions, No use of accessory muscles, clear to auscultation bilaterally and percussion normal AUSCULTATION: clear to auscultation bilaterally PERCUSSION: percussion normal GI: COMMON NORMALS: Normal to inspection, nondistended, normoactive bowel sounds present, Soft to palpation, non-tender, No hepatosplenomegaly present, no masses and no bruits PALPATION: Yes Soft to palpation and Yes No hepatosplenomegaly present : COMMON NORMALS: Yes normal appearance of the vagina EXTERNAL FEMALE EXAM: Yes normal appearance of the urethra SPECULUM EXAM - VAGINA: Yes Vaginal discharge present Vaginal discharge present: winn SPECULUM EXAM - CERVIX: Yes Cervical os closed (no fb/iud present) and No Cervical bleeding BIMANUAL EXAM - VAGINA & UTERUS: Yes cervical motion tenderness and Yes uterine size normal BIMANUAL EXAM - ADNEXA, OTHER: Yes normal adnexae Neuro: COMMON NORMALS: patient oriented x3 SENSORIUM/ORIENTATION: Yes alert Course Vital Signs: Vital signs: Vital Signs Temperature 97.9 F 08/16/25 12:38 Pulse Rate 69 08/16/25 15:51 Respiratory Rate 18 08/16/25 12:38 Blood Pressure 103/67 08/16/25 15:51 Pulse Oximetry 100 08/16/25 15:51 Oxygen Delivery Me thod Room Air 08/16/25 12:38 MDM - Female Medical Decision Making Patient is a 24-year-old female with dyspareunia. On physical examination, pelvic, her IUD strings cannot be visualized, however she had some light green/winn daily drainage. Julianna, wet prep, gonorrhea, and chlamydia are all negative. I do suspect PID send she does have cervical motion tenderness. Most likely localized to around the IUD. The IUD is in good position. There is no evidence of torsion. Plan is for antibiotic coverage for PID, and follow-up with primary care. Medical Records I reviewed the patient's medical records. Lab Data I reviewed the patient's lab results. Radiology Impressions Transvaginal US 08/16/25 13:15 IMPRESSION: Normal duplex of the ovaries. No evidence of ovarian torsion. IMPRESSION: An IUD is in place. It string appears to be in the cervix. Fluid in the endometrial canal and pelvis. Probable collapsing cyst in the right ovary. Laboratory Results HCG, Qual Negative (Negative) 08/16/25 13:03 Urine Color Yellow (Yellow) 08/16/25 13:03 Urine Appearance Clear (CLEAR) 08/16/25 13:03 Urine pH 7.5 (5-7) 08/16/25 13:03 Ur Specific [place] 1.008 (1.005-1.030) 08/16/25 13:03 Urine Protein Negative (Negative) 08/16/25 13:03 Urine Glucose (UA) Negative (Normal) 08/16/25 13:03 Urine Ketones Negative (Negative) 08/16/25 13:03 Urine Blood 1+ (Negative) A 08/16/25 13:03 Urine Nitrate Negative (Negative) 08/16/25 13:03 Urine Bilirubin Negative (Negative) 08/16/25 13:03 Urine Urobilinogen 1.0 mg/dL (Negative) 08/16/25 13:03 Ur Leukocyte Esterase Negative (Negative) 08/16/25 13:03 Urine RBC 0-2 /hpf (0-2) 08/16/25 13:03 Urine WBC 0-5 /hpf (0-5) 08/16/25 13:03 Ur Squamous Epith Cells 0-5 /hpf (0-5) 08/16/25 13:03 Amorphous Sediment Not Reportable 08/16/25 13:03 Urine Bacteria None seen /hpf (NONE) 08/16/25 13:03 Hyaline Casts 0-4 /lpf H 08/16/25 13:03 C. trachomatis (PCR) Not detected (Negative) 08/16/25 13:13 N. gonorrhoeae (PCR) Not detected (Negative) 08/16/25 13:13 All radiology interpretation(s) finalized by discharge Discharge Plan Discharge Patient Disposition: Home Clinical Impression: Acute PID (pelvic inflammatory disease) Condition: Stable Prescriptions: New metronidazole 500 mg tablet 500 mg PO BID 7 Days Qty: 14 0RF doxycycline hyclate 100 mg capsule 100 mg PO BID 10 Days Qty: 20 0RF No Action buspirone 15 mg tablet 15 mg PO TID dextroamphetamine-amphetamine [Adderall] 15 mg tablet 15 mg PO BID Rx Instructions: administer doses at least 4-6 hours apart Discharge Orders: Discharge ED (Routine); Ordered 08/16/25 Ordered By: Sandy Couch Referrals: Ariadna Delacruz FNP [Primary Care Provider, [facility]] Discharge Diet: Usual diet Discharge Activity: Resume usual activity Patient Instructions: Pelvic Inflammatory Disease (ED), Dyspareunia in Women (DC), Patient Portal & Lilliam Instructions Activity Restrictions/Additional Instructions: - Take antibiotics as prescribed. Do not drink any alcohol with metronidazole. There is a special reaction with alcohol and you will not stop throwing up if you do this. -Take a probiotic with the antibiotics to avoid infectious diarrhea - No sexually-transmitted type disease was found however clinically you have pelvic inflammatory disease. Your IUD does not appear to be migrated. Follow-up with your [facility] for further evaluation. - Return to ED with fever greater than 100.4, worsening pain. Thank you for choosing [facility] for your healthcare needs today. You have been screened and evaluated and felt safe for discharge. Health conditions do change or evolve sometimes and as such it is important that you follow up with your Primary Doctor to be re checked, 3-5 days is a general good time frame for follow up. You are always welcome to return to the ED for re assessment if your symptoms are worsening or you have new concerns Print Language: [place] Coding Level of Care Code ED Stripper Latex for Negin Cisneros
[2025-08-16 13:10] LABS: Glucose Urine UA Negative (Normal); Nitrate Urine Negative (Negative); Specific Gravity, Urine 1.008 (1.005-1.030)
[2025-08-16 13:12] LABS: Add Urine Microscopic? YES
--- NOTE | 2025-08-16 13:15 | USR_ITS ---
PROCEDURE INFORMATION: Exam: US Duplex Artery or Vein of the Abdominal and/or Reproductive Organs, Limited Ovaries Exam date and time: 08/16/2025 1:55 PM Age: 24 years old Clinical indication: Pelvic pain TECHNIQUE: Imaging protocol: Real-time duplex ultrasound scan of the arterial or venous flow with winn scale, color Doppler flow and spectral waveform analysis with image documentation. Limited duplex exam focused on the ovaries. Duplex exam was performed to evaluate for torsion and other vascular conditions. COMPARISON: US OB lmt with transvaginal 11/12/2024 12:28 PM FINDINGS: Right ovary/adnexa: Normal arterial or venous Doppler waveforms in the ovary. No ovarian torsion. Left ovary/adnexa: Normal arterial or venous Doppler waveforms in the ovary. No ovarian torsion. PROCEDURE INFORMATION: Exam: US Pelvis, Transvaginal, Non-Obstetric Exam date and time: 08/16/2025 1:55 PM Age: 24 years old Clinical indication: Pelvic pain TECHNIQUE: Imaging protocol: Real-time transvaginal pelvic (non-obstetric) ultrasound with image documentation. Transvaginal imaging was used for better evaluation of the endometrium, adnexa, and/or cervix. COMPARISON: US OB lmt with transvaginal 11/12/2024 12:28 PM FINDINGS: Uterus: Uterus measures 8.1 x 4.5 x 4.8 cm. Endometrial thickness is 5 mm. There is a normally positioned IUD. It string appears to be in the cervix. There is fluid in the cervical canal. Otherwise unremarkable. Right ovary/adnexa: The right ovary measures 3.3 x 3.2 x 2.7. Follicles are seen. There appears to be an approximately 2.1 x 1.0 x 0.7 cm collapsing cyst. No mass. Left ovary/adnexa: The left ovary measures 2.6 x 1.8 x 2.2 cm. Follicles are seen. No mass. Urinary bladder: Not visualized. Intraperitoneal space: There is a moderate amount of free pelvic fluid in the cul-de-sac and in the adnexal regions. US/US transvaginal [id number] IMPRESSION: Normal duplex of the ovaries. No evidence of ovarian torsion. IMPRESSION: An IUD is in place. It string appears to be in the cervix. Fluid in the endometrial canal and pelvis. Probable collapsing cyst in the right ovary.
[2025-08-16 13:21] LABS: HCG Qualitative Urine. Negative (Negative)
[2025-08-16] MEDS: orphenadrine 30 mg/mL Inj 2 mL 60 MG IM (13:27)
[2025-08-16] MEDS: HYDROmorphone 0.5 MG/0.5 ML INJ 1 MG IM (13:28)
[2025-08-16 14:54] LABS: Neisseria Gonorrhea NOT DETECTED (Negative)
[2025-08-16] MEDS: cefTRIAXone 500 MG in water for injection-sterile 1 ML IM (15:33)
[2025-08-16 15:51] VITALS: BP 103/67; PULSE 69; O2SAT 100
== END 2025-08-16 15:53 | disposition home or self-care (01) ==
PROVIDERS: Emergency Provider Physician Assistant
DX: N94.10 Unspecified dyspareunia (principal); N73.0 Acute parametritis and pelvic cellulitis
CPT/HCPCS: 76830; 81001; 81025; 87210; 87491; 87591; 96372; 99284; J0696; J1171; J2360; J9999